=== PATIENT | female | born 1965 | race Caucasian/White ===

== ENCOUNTER → 2016-10-06 | Outpatient (CLI) | payer OTHER ==
[~2016-10-06] MED LIST: ASPI81TA28 PO; ATOR-24 PO; CIPR-255 PO; DIPH50TA10 PO; FLUO40CA8 PO; FOLI1TAB7 PO; GLCSR10 PO; HYDR-5688 PO; INSDGI SC; LEVO88TA3 PO; LISI-789 PO; LNX25 PO; METO50TA7 PO; NTRGSL/4 UT; ONDA4TAB54 PO; OXYC-57 PO; POTA20TA16 PO; RANO1000 PO; SPIR25TA PO; SPRIN/30 INH; TEMA15CA4 PO; TEMA30CA4 PO; TORS100T13 PO
[2016-10-06 18:55] LABS: BASO % 0.2 %; BASO ABS # 0.03 K/uL (0-0.2); COMPLETE YES; EOS % 1.1 %; HEMATOCRIT 36.2 % (37-47); IG% 0.4 %; LYMPH % 21.5 %; LYMPH ABS # 2.82 K/uL (1.2-3.4); MEAN CELL VOLUME 88.5 fL (80-100); MEAN CORPUSCULAR HEMOGLOBIN 27.4 pg (25-34); MEAN CORPUSCULAR HGB CONC 30.9 g/dl (32-36); MEAN PLATELET VOLUME 10.2 fL (7.4-10.4); MONO % 4.6 %; NEUT % 72.2 %; PLATELET COUNT 300 K/uL (130-400); RED BLOOD COUNT 4.09 M/uL (4.2-5.4); WHITE BLOOD COUNT 13.12 K/uL (4.8-10.8)
[2016-10-06 19:07] LABS: BLOOD UREA NITROGEN 21 mg/dl (7-18); BUN/CREATININE RATIO 10.6 (10-20); CALCIUM 8.8 mg/dl (8.5-10.1); CARBON DIOXIDE 31 mmol/L (21-32); CHLORIDE 98 mmol/L (98-107); GLUCOSE 179 mg/dl (70-99); POTASSIUM 3.6 mmol/L (3.5-5.1); SODIUM 139 mmol/L (136-145)
[2016-10-06 19:10] LABS: URINE APPEARANCE CLEAR (CLEAR); URINE BILIRUBIN NEG (NEG); URINE COLOR DK YELLOW; URINE EPITHELIAL CELL AUTO >30 /lpf (0-5); URINE NITRITE NEG (NEG); URINE SPECIFIC GRAVITY 1.012 (1.000-1.030); UROBILINOGEN NEG (NEG)
[2016-10-06 19:12] LABS: MANUAL MICROSCOPIC REQUIRED? NO; REVIEW REQ? NO
== END | disposition home or self-care (01) ==
LOC: C.LABMFLN 12:06
PROVIDERS: ATTEND Family Medicine
DX: R31.9 Hematuria, unspecified (principal)

== ENCOUNTER → 2017-01-04 | Outpatient (CLI) | payer OTHER ==
[2017-01-04 13:32] LABS: URINE APPEARANCE CLEAR (CLEAR); URINE BILIRUBIN NEG (NEG); URINE COLOR YELLOW; URINE EPITHELIAL CELL AUTO >30 /lpf (0-5); URINE NITRITE NEG (NEG); URINE SPECIFIC GRAVITY 1.011 (1.000-1.030); UROBILINOGEN NEG (NEG); ZZUR CULT IF INDIC CLEAN CATCH NO
[2017-01-04 13:57] LABS: MANUAL MICROSCOPIC REQUIRED? NO; REVIEW REQ? NO
[2017-01-04 14:01] LABS: ESTIMATED AVERAGE GLUCOSE 189 mg/dl; HA1C FLAG Normal (Normal)
[2017-01-04 15:03] LABS: ALT/SGPT 21 U/L (12-78); BLOOD UREA NITROGEN 18 mg/dl (7-18); BUN/CREATININE RATIO 9.5 (10-20); CARBON DIOXIDE 34 mmol/L (21-32); CHLORIDE 98 mmol/L (98-107); GLUCOSE 136 mg/dl (70-99); SODIUM 139 mmol/L (136-145)
[2017-01-04 15:08] LABS: CALCIUM 9.6 mg/dl (8.5-10.1)
[2017-01-04 15:13] LABS: ALB/GLOB RATIO 0.9 (0.9-2); ALKALINE PHOSPHATASE 311 U/L (45-117); AST/SGOT 16 U/L (15-37)
== END | disposition home or self-care (01) ==
LOC: C.LABMFLN 08:30
PROVIDERS: ATTEND Family Medicine
DX: I50.30 Unspecified diastolic (congestive) heart failure (principal); E11.9 Type 2 diabetes mellitus without complications; N18.3 Chronic kidney disease, stage 3 (moderate); Z79.01 Long term (current) use of anticoagulants; K80.20 Calculus of gallbladder without cholecystitis without obstruction; I25.10 Atherosclerotic heart disease of native coronary artery without angina pectoris; R11.0 Nausea

== ENCOUNTER 2017-03-03 05:19 | Observation (INO) | payer OTHER ==
[2017-02-23 08:48] VITALS: BMI 47.0
--- NOTE | 2017-02-23 09:26 | PAT Medication Instructions ---
Service Date Feb 23, 2017. Current Home Medication List Aspirin (Aspirin Ec), 81 MG PO QAM Atorvastatin (Lipitor), 40 MG PO HS Digoxin (Digoxin), 0.25 MG PO M,W,F Digoxin (Digoxin), 0.5 TAB PO SUN, TUES, THUR,SAT Diphenhydramine Hcl (Sleep) (Diphenhydramine Hcl), 1 TAB PO HS Fluoxetine (Prozac), 40 MG PO QAM Folic Acid (Folvite), 1 MG PO QAM Glipizide (Glipizide ER), 10 MG PO BID Hydrocodone/Acetaminophen 5MG/325MG ([place] 5MG/325MG), 1 TABLET PO TID PRN for Pain Insulin Glargine (Lantus), 20 UNITS SC QPM Levothyroxine Sodium (Levothyroxine Sodium), 1 TAB PO QAM Lisinopril (Zestril), 2.5 MG PO HS Metoprolol Succ (Toprol Xl) (Toprol-Xl), 50 MG PO QAM Nitroglycerin (Nitrostat), 0.4 MG UT PRN Ondansetron (Ondansetron HCl), 4 MG PO QID PRN for Nausea or Vomiting Potassium Ext Rel (Klor-Con), 20 MEQ PO QAM Ranolazine (Ranexa), 1 TAB PO BID Spironolactone (Aldactone), 25 MG PO QAM Temazepam (Restoril), 15 MG PO HS Temazepam (Restoril), 30 MG PO HS Tiotropium [place] (Spiriva Handihaler), 1 CAP INH DAILY PRN for PRN Torsemide (Demadex), 150 MG PO QAM Medication Instructions For Your Scheduled Surgery - Use if needed: Nitroglycerin (Nitrostat), 0.4 MG UT PRN - Hold the following medications 24 hours prior to surgery: Lisinopril (Zestril), 2.5 MG PO HS - Hold the following medications the morning of surgery: Glipizide (Glipizide ER), 10 MG PO BID Folic Acid (Folvite), 1 MG PO QAM Potassium Ext Rel (Klor-Con), 20 MEQ PO QAM Spironolactone (Aldactone), 25 MG PO QAM Torsemide (Demadex), 150 MG PO QAM - Take the following medications the morning of surgery with a sip of water OTHERWISE NOTHING TO EAT OR DRINK AFTER MIDNIGHT: Aspirin (Aspirin Ec), 81 MG PO QAM Hydrocodone/Acetaminophen 5MG/325MG ([place] 5MG/325MG), 1 TABLET PO TID PRN for Pain (may take if needed up to 4 hours prior to surgery) Ranolazine (Ranexa), 1 TAB PO BID Fluoxetine (Prozac), 40 MG PO QAM Levothyroxine Sodium (Levothyroxine Sodium), 1 TAB PO QAM Digoxin (Digoxin) Metoprolol Succ (Toprol Xl) (Toprol-Xl), 50 MG PO QAM Tiotropium [place] (Spiriva Handihaler), 1 CAP INH DAILY PRN for PRN Ondansetron (Ondansetron HCl), 4 MG PO QID PRN for Nausea or Vomiting - Take the following medications as scheduled the night before surgery: Temazepam (Restoril), 15 MG PO HS Temazepam (Restoril), 30 MG PO HS Insulin Glargine (Lantus), 20 UNITS SC QPM Glipizide (Glipizide ER), 10 MG PO BID Atorvastatin (Lipitor), 40 MG PO HS Hydrocodone/Acetaminophen 5MG/325MG ([place] 5MG/325MG), 1 TABLET PO TID PRN for Pain Ranolazine (Ranexa), 1 TAB PO BID Tiotropium [place] (Spiriva Handihaler), 1 CAP INH DAILY PRN for PRN Ondansetron (Ondansetron HCl), 4 MG PO QID PRN for Nausea or Vomiting Diphenhydramine Hcl (Sleep) (Diphenhydramine Hcl), 1 TAB PO HS If you have any questions please call us at [phone] or [phone] or [phone]
[2017-02-23 10:09] LABS: BASO % 0.4 %; BASO ABS # 0.04 K/uL (0-0.2); COMPLETE YES; EOS % 1.4 %; HEMATOCRIT 39.4 % (37-47); IG% 0.3 %; LYMPH % 22.6 %; LYMPH ABS # 2.15 K/uL (1.2-3.4); MEAN CELL VOLUME 86.4 fL (80-100); MEAN CORPUSCULAR HEMOGLOBIN 26.8 pg (25-34); MEAN PLATELET VOLUME 9.7 fL (7.4-10.4); MONO % 5.7 %; NEUT % 69.6 %; PLATELET COUNT 212 K/uL (130-400); RED BLOOD COUNT 4.56 M/uL (4.2-5.4)
[2017-02-23 11:01] LABS: BUN/CREATININE RATIO 11.3 (10-20); CALCIUM 8.7 mg/dl (8.5-10.1); CREATININE 1.5 mg/dl (0.60-1.20); POTASSIUM 3.7 mmol/L (3.5-5.1)
[2017-03-03] VITALS (11 sets, daily range): BP systolic 94–120; BP diastolic 54–69; PULSE 51–62; TEMP 36.4–36.8; O2SAT 93–99; Ht 162.6 cm; Wt 122.9 kg
[~2017-03-03] VITALS: Ht 162.6 cm; Wt 122.9 kg
[~2017-03-03 05:19] MED LIST changes: -CIPR-255 PO; -OXYC-57 PO
[2017-03-03] MEDS ORDERED: CEFUROXIME IV 1,500 MG in DEXTROSE 5% 100ML IV SCH (06:00)
[2017-03-03] MEDS ORDERED: LACTATED RINGER'S 1000ML 1,000 ML IV SCH ×2 (06:00→08:43)
[2017-03-03] MEDS ORDERED: ACETAMINOPHEN 1000 MG/100 ML IV IV ONE (06:08)
[2017-03-03] MEDS ORDERED: GLYCOPYRROLATE INJ 0.2 MG/ML VIAL ONE (06:24)
[2017-03-03] MEDS ORDERED: DEXAMETHASONE SOD INJ 4 MG/ML VIAL ONE (06:24)
[2017-03-03] MEDS ORDERED: ONDANSETRON INJ 2 MG/ML 2 ML VIAL ONE (06:24)
[2017-03-03] MEDS ORDERED: NEOSTIGMINE METHYLSULFATE 5 MG/5 ML SYR ONE (06:24)
[2017-03-03] MEDS ORDERED: PROPOFOL IV EMULSION 10 MG/ML 20 ML VIAL IV ONE (06:24)
[2017-03-03] MEDS ORDERED: FENTANYL CITRATE INJ 50 MCG/1 ML 2 ML VIAL ONE ×2 (06:24→08:54)
[2017-03-03] MEDS ORDERED: LIDOCAINE HCL 2% 2 ML VIAL (20MG/ML) ONE (06:24)
[2017-03-03] MEDS ORDERED: MIDAZOLAM HCL 1 MG/ML 2ML VIAL ONE (06:24)
[2017-03-03] MEDS ORDERED: ROCURONIUM BROMIDE 10 MG/ML 5 ML VIAL ONE (06:24)
[2017-03-03] MEDS ORDERED: CONRAY 60% 50 ML VIAL ONE (06:35)
[2017-03-03] MEDS ORDERED: BUPIVACAINE 0.5 % 5 MG/1 ML MPF 30ML VIAL ONE (06:35)
[2017-03-03] MEDS ORDERED: KETAMINE HCL INJ 50 MG/ML 10 ML VIAL ONE (07:10)
[2017-03-03] MEDS ORDERED: PHENYLEPHRINE 100MCG/ML 5ML SYR ONE (07:34)
[2017-03-03] MEDS ORDERED: EpHEDrine SULFATE 50MG/5ML SYR ONE (07:34)
--- NOTE | 2017-03-03 08:43 | [facility] Post Operative Brief Note ---
Immediate Operative Summary Operative Date Mar 03, 2017. Pre-Operative Diagnosis Chronic Cholecystitis Post-Operative Diagnosis Chronic Cholecystitis Procedure(s) Performed Laparoscopic Cholecystectomy Surgeon Dr. Walker P[employer] Installation Engineer Surgeon(s) Karen Rodriguez PA-C Estimated Blood Loss 20cc Findings severe hepatic congestion, chronic inflammation, stone in neck, sludge Specimens A: Gallbladder and contents Drains #[id number] MARQUIS Anesthesia gen Complication(s) None Disposition Recovery Room / PACU
[2017-03-03] MEDS ORDERED: ONDANSETRON INJ 2 MG/ML 2 ML VIAL IV PRN ×2 (08:45)
[2017-03-03] MEDS ORDERED: HYDROCODONE/ACETAMOPHEN 5/325MG TAB PO PRN (08:45)
[2017-03-03] MEDS ORDERED: NALOXONE HCL 0.4 MG/1 ML VIAL/CARP IV PRN (08:45)
[2017-03-03] MEDS ORDERED: MoRPHine SULFATE 2 MG/ML CARP IV PRN (08:45)
[2017-03-03] MEDS ORDERED: FENTANYL CITRATE INJ 50 MCG/1 ML 2 ML VIAL IV PRN (08:45)
[2017-03-03] MEDS ORDERED: PROMETHAZINE HCL INJ 25 MG in SODIUM CHLORIDE 0.9% 50ML 50 ML IV PRN ×2 (08:45→10:00)
[2017-03-03] MEDS ORDERED: ATROPINE SULFATE 0.1 MG/ML 5ML SYR IV PRN (08:45)
[2017-03-03] MEDS ORDERED: EpHEDrine SULFATE INJ 50 MG/ML AMP IV PRN (08:45)
[2017-03-03] MEDS ORDERED: PROMETHAZINE HCL INJ 12.5 MG in SODIUM CHLORIDE 0.9% 50ML 50 ML IV PRN ×2 (08:45→10:00)
[2017-03-03] MEDS ORDERED: FLUMAZENIL 0.1 MG/1 ML 10 ML VIAL IV PRN (08:45)
[2017-03-03] MEDS ORDERED: LABETALOL HCL IV 5 MG/ML 20ML IV PRN (08:45)
[2017-03-03] MEDS ORDERED: IV FLUIDS COMPLETED PRN (09:00)
--- NOTE | 2017-03-03 09:06 | OPERATIVE REPORT ---
DATE OF OPERATION: 03/03/2017 NAME OF OPERATION: Laparoscopic cholecystectomy. PREOPERATIVE DIAGNOSIS: Chronic cholecystitis. POSTOPERATIVE DIAGNOSIS: Same with severe chronic liver congestion. STAFF SURGEON: Dr. Walker. TECHNICAL SUPPORT 1 SOFTWARE ENGINEER: Karen Rodriguez PA-C. ANESTHESIA: General. FINDINGS: The patient had a chronically inflamed gallbladder with a stone in the neck of the gallbladder and very severe hepatic congestion. PROCEDURE: The patient was brought in the operating room and placed on the operating table in supine position. Her abdomen was prepped and draped in usual fashion. On physical exam, the patient seemed to have a very large liver. Incision was made just above the umbilicus. She did have a small umbilical hernia. I placed a 5 mm port through this site and produced a pneumoperitoneum. The peritoneum was opened under visualization. At this point, I put a large balloon cannula into this site and then I was able to place two 5 mm ports laterally and then a 11 mm port more inferiorly lower than normal because of the patient's large liver. We were able to identify the gallbladder and retract it with some difficulty because of the liver congestion. It was retracted. It was aspirated of bile. Dissection was carried out at the reese hepatis. She did have a stone in the neck of the gallbladder. The cystic duct and cystic artery were identified, clipped and transected. It did appear that the patient did have some sludge in the gallbladder and within the cystic duct. At this point, the gallbladder was dissected away from the liver. Liver was very friable and fragile secondary to congestion. The gallbladder was placed in an Endobag and then a #15 round Stalin-Allan drain was placed into the subhepatic space, secured to the skin using 3-0 nylon suture. At this point, the gallbladder was removed through the umbilical site. All ports were then removed. The umbilical fascia closed using interrupted 0 PDS suture, subcutaneous tissue reapproximated using 2-0 plain catgut suture and the skin reapproximated using 4-0 nylon suture. The patient was transferred to recovery room in stable condition. I attest to the content of the Intraoperative Record and any orders documented therein. Any exception s are noted below.
--- NOTE | 2017-03-03 09:31 | Anesthesiology Progress Note ---
Anesthesia Post Op Note Date & Time Mar 03, 2017 at 09:31 Vital Signs Pain Intensity: 6 Vital Signs Past 12 Hours Date Time Temp Pulse Resp B/P (MAP) Pulse Ox O2 Delivery O2 Flow Rate FiO2 03/03/17 09:25 58 18 98/49 (65) 96 Nasal Cannula 2 03/03/17 09:15 55 17 95/49 (65) 96 Nasal Cannula 2 03/03/17 09:05 57 18 109/55 97 Mask 10 03/03/17 08:55 58 18 112/50 99 Mask 10 03/03/17 08:48 36.4 65 10 122/54 97 Mask 10 03/03/17 05:40 36.4 54 20 94/69 (77) 93 Room Air Notes Mental Status: alert / awake / arousable, participated in evaluation Pt Amnestic to Procedure: Yes Nausea / Vomiting: adequately controlled Pain: adequately controlled Airway Patency, RR, SpO2: stable & adequate BP & HR: stable & adequate Hydration State: stable & adequate Anesthetic Complications: no major complications apparent
[2017-03-03] MEDS: MoRPHine SULFATE 4 MG/ML 1 ML CARP\\VIAL IV PRN ×2 (10:35→20:56)
[2017-03-03] MEDS ORDERED: NITROGLYCERIN 0.4 MG SL PER TAB CHARGE UT SCH (10:45)
[2017-03-03] MEDS ORDERED: TIOTROPIUM BROMIDE 5 PUFF/90 MCG INH INH PRN (10:45)
[2017-03-03] MEDS: INSULIN ASPART 100 UNITS/ML 3 ML PEN SC SCH ×3 (11:00→20:51)
--- NOTE | 2017-03-03 11:22 | History and Physical ---
History & Physical Date & Time of Service: Mar 03, 2017 at 10:43 Chief Complaint: Gallstones; Diabetes, Chronic Kidney Disease Primary Care Physician: Carlos Guardado M.D. History of Present Illness Source: patient, family 51 y/o F Hx morbid obesity, chronic systolic CHF, AICD, COPD, CKD 3, CAD, RAJINDER. Admitted for elective laparoscopic cholecystectomy. Pt is post-op, c/o of some related pain but is otherwise recovering well. Denies SOB, CP fevers or vomiting. Describes nausea. Past Medical/Surgical History 1) COPD 2) CAD - total 8 MIs and multiple stents 3) CHF - chronic systolic - EF 25% 4) AICD 5) CKD 3 - baseline creat approx 1.5 6) Morbid obesity 7) Continues to smoke 8) RAJINDER - compliant with CPAP 9) Hypothyroidism Family History Adopted - both biologic parents - cause not known Social History Smokes 1/2 pack daily - no ETOH Smoking Status: Current Every Day Smoker Allergies Coded Allergies: Clopidogrel (Verified Allergy, Mild, HIVES, 03/03/17) Home Medications Scheduled Aspirin (Aspirin Ec), 81 MG PO QAM Atorvastatin (Lipitor), 40 MG PO HS Digoxin (Digoxin), 0.25 MG PO M,W,F Digoxin (Digoxin), 0.5 TAB PO SUN, TUES, THUR,SAT Diphenhydramine Hcl (Sleep) (Diphenhydramine Hcl), 1 TAB PO HS Fluoxetine (Prozac), 40 MG PO QAM Folic Acid (Folvite), 1 MG PO QAM Glipizide (Glipizide ER), 10 MG PO BID Insulin Glargine (Lantus), 20 UNITS SC QPM Levothyroxine Sodium (Levothyroxine Sodium), 1 TAB PO QAM Lisinopril (Zestril), 2.5 MG PO HS Metoprolol Succ (Toprol Xl) (Toprol-Xl), 50 MG PO QAM Nitroglycerin (Nitrostat), 0.4 MG UT PRN Potassium Ext Rel (Klor-Con), 20 MEQ PO QAM Ranolazine (Ranexa), 1 TAB PO BID Spironolactone (Aldactone), 25 MG PO QPM Temazepam (Restoril), 15 MG PO HS Temazepam (Restoril), 30 MG PO HS Torsemide (Demadex), 150 MG PO QPM Scheduled PRN Hydrocodone/Acetaminophen 5MG/325MG ([place] 5MG/325MG), 1 TABLET PO TID PRN for Pain Ondansetron (Ondansetron HCl), 4 MG PO QID PRN for Nausea or Vomiting Tiotropium [place] (Spiriva Handihaler), 1 CAP INH DAILY PRN for PRN Review of Systems Constitutional: No fever, No chills, No sweats Eyes: No worsening of vision, No eye pain ENT: No hearing loss, No unusual epistaxis, No nasal symptoms Respiratory: No cough, No sputum, No wheezing Cardiovascular: No chest pain, No orthopnea, No PND Abdomen: + pain, + nausea, No vomiting, No diarrhea Musculoskeletal: No joint pain, No muscle pain Genitourinary - Female: No dysuria, No urinary frequency Neurologic: + weakness, No memory loss, No paralysis Psychiatric: No depression symptoms, No anhedonism Endocrine: + fatigue Hematologic / Lymphatic: No abnormal bleeding/bruising Integumentary: No rash Allergic / Immunologic: No environmental allergies Physical Exam Vital Signs Date Time Temp Pulse Resp B/P (MAP) Pulse Ox O2 Delivery O2 Flow Rate FiO2 03/03/17 10:14 36.4 51 17 94/54 97 Nasal Cannula 2.0 03/03/17 09:45 51 13 96/53 (74) 97 Nasal Cannula 2 03/03/17 09:35 36.0 52 14 101/47 (65) 97 Nasal Cannula 2 03/03/17 09:25 58 18 98/49 (65) 96 Nasal Cannula 2 03/03/17 09:15 55 17 95/49 (65) 96 Nasal Cannula 2 03/03/17 09:05 57 18 109/55 97 Mask 10 03/03/17 08:55 58 18 112/50 99 Mask 10 03/03/17 08:48 36.4 65 10 122/54 97 Mask 10 03/03/17 05:40 36.4 54 20 94/69 (77) 93 Room Air General Appearance: WD/WN, no apparent distress, + pertinent finding (Irritable , middle aged female - uncomfortable but no distress) Head: normocephalic Eyes: normal inspection, PERRL, EOMI ENT: normal ENT inspection, pharynx normal Neck: supple, no JVD Respiratory/Chest: chest non-tender, lungs clear, normal breath sounds Cardiovascular: regular rate, rhythm, no edema, no gallop Abdomen/GI: + tenderness (deep palpation deferred) Back: normal inspection, no CVA tenderness Extremities/Musculoskelatal: normal inspection, no calf tenderness, normal capillary refill, no pedal edema Neurologic/Psych: youtuber II-XII nml as tested, no motor/sensory deficits, alert, normal mood/affect, normal reflexes, oriented x 3 Skin: normal color, warm/dry, no rash Diagnostics Laboratory Results Results Past 24 Hours Test 03/03/17 05:36 03/03/17 09:25 Range/Units Bedside Glucose 108 134 70-90 mg/dl EKG Post-op EKG - Sinus delroy 51 BPM - borderline QT prolongation Impression Assessment and Plan 51 y/o F Hx morbid obesity, chronic systolic CHF, COPD, CKD 3, CAD, RAJINDER. Admitted for elective laparoscopic cholecystectomy. Pt is post-op, c/o of some related pain but is otherwise recovering well. Denies SOB, CP fevers or vomiting. Describes nausea. 1) Post - op - despite complex med history pt appears well compensated and is recovering well. Maintain adequate pain control - start DVT prophylaxis at earliest time as she is moderate to high risk. Should start diet LYNDA if tolerating as she will need her prescribed medications. 2) CHF - she is currently on LR at 50cc/hr - we are pending post-op labs. Would defer her diuretics if possible for tomorrow AM following clinical reassessment and repeat BMP. Currently she is euvolemic. cont Toprol - restart JESICA AM. 3) CAD - repeat EKG shows sinus delroy - no ischemic changes. Cont Toprol, PRN NTG, Ranexa. 4) CKD 3 - creat stable - repeat pending - IVF provided - avoid overdiuresis. 5) COPD - Albuterol provided PRN. Cont Singulair. 6) RAJINDER - CPAP HS 7) DM - placed on SS - Lantus if tolerating PO 8) Hypothyroid - cont Synthroid 9) Surgeon reports impressive hepatomegaly noted during procedure - should f/u with GI - likely congestion and/or LACY - related Med service to follow daily Total time for this consult including review of labs, meds, EKG - discussion with pt and surgery attending - 38 min Above is an inpt consult Advanced Directives Existing Living Will: No Existing Power of Park Guide: No Resuscitation Status FULL RESUSCITATION VTE Prophylaxis VTE Risk Assessment Done? Y/N: Yes Risk Level: Moderate
[2017-03-03] MEDS ORDERED: ALBUTEROL 0.083% NEBU SOLN 3 ML VIAL INH PRN (11:30)
[2017-03-03 11:39] LABS: BUN/CREATININE RATIO 10.3 (10-20); CREATININE 1.6 mg/dl (0.60-1.20); MAGNESIUM 2.3 mg/dl (1.8-2.4); POTASSIUM 3.9 mmol/L (3.5-5.1)
[2017-03-03 11:55] LABS: CALCIUM 8.5 mg/dl (8.5-10.1)
[2017-03-03] MEDS: HYDROCODONE/ACETAMOPHEN 5/325MG TAB PO PRN ×2 (12:06→16:06)
[2017-03-03] MEDS: CEFUROXIME IV 1,500 MG in DEXTROSE 5% 100ML 100 ML IV SCH ×2 (13:19→21:02)
[2017-03-03] MEDS ORDERED: DIGOXIN 0.25 MG TAB PO SCH (16:00)
[2017-03-03] MEDS: ATORVASTATIN 40 MG TAB PO SCH (20:43)
[2017-03-03] MEDS: RANOLAZINE 500 MG ER TAB PO SCH (20:43)
[2017-03-03] MEDS: TEMAZEPAM 15 MG CAP PO SCH (20:44)
[2017-03-03] MEDS: INSULIN GLARGINE SOLOSTAR 100 UNITS/ML 3 ML PEN SC SCH (20:51)
[2017-03-03] MEDS ORDERED: TEMAZEPAM 15 MG CAP PO SCH (21:00)
[2017-03-04] VITALS (9 sets, daily range): BP systolic 99–114; BP diastolic 50–70; PULSE 53–64; TEMP 36.5–36.9; O2SAT 92–97
[2017-03-04] MEDS: MoRPHine SULFATE 4 MG/ML 1 ML CARP\\VIAL IV PRN ×2 (01:48→22:12)
[2017-03-04] MEDS: LEVOTHYROXINE 88 MCG TAB PO SCH (05:21)
[2017-03-04] MEDS: HYDROCODONE/ACETAMOPHEN 5/325MG TAB PO PRN ×3 (05:22→15:21)
[2017-03-04] MEDS: CEFUROXIME IV 1,500 MG in DEXTROSE 5% 100ML 100 ML IV SCH (05:22)
[2017-03-04 05:36] LABS: HEMATOCRIT 39.4 % (37-47); MEAN CELL VOLUME 85.5 fL (80-100); MEAN CORPUSCULAR HEMOGLOBIN 26.2 pg (25-34); MEAN CORPUSCULAR HGB CONC 30.7 g/dl (32-36); MEAN PLATELET VOLUME 10.4 fL (7.4-10.4); PLATELET COUNT 219 K/uL (130-400); RED BLOOD COUNT 4.61 M/uL (4.2-5.4); WHITE BLOOD COUNT 13.43 K/uL (4.8-10.8)
[2017-03-04 06:09] LABS: BUN/CREATININE RATIO 13.1 (10-20); CALCIUM 8.5 mg/dl (8.5-10.1); CREATININE 1.5 mg/dl (0.60-1.20); POTASSIUM 4.2 mmol/L (3.5-5.1)
[2017-03-04 06:12] LABS: ALB/GLOB RATIO 0.9 (0.9-2)
--- NOTE | 2017-03-04 06:54 | Surgery Progress Note ---
Surgery Progress Note Date of Service Mar 04, 2017. Subjective + pain controlled, No nausea, No vomiting awake, alert, serous/clear drainage-expected Objective Vital Signs: Date Time Temp Pulse Resp B/P (MAP) Pulse Ox O2 Delivery O2 Flow Rate FiO2 03/04/17 04:00 Room Air 2.0 CPAP 03/04/17 03:47 36.5 64 22 114/50 (71) 95 CPAP 03/04/17 00:00 Room Air 2.0 CPAP 03/03/17 23:46 36.5 57 20 115/57 (76) 93 CPAP 03/03/17 20:04 54 97 2.0 03/03/17 20:00 Room Air 2.0 CPAP 03/03/17 19:12 36.5 62 17 120/65 (83) 93 Room Air 03/03/17 16:05 55 03/03/17 16:00 Room Air 03/03/17 15:26 36.6 55 20 105/66 (79) 97 Room Air 03/03/17 13:00 36.7 55 22 107/61 (76) 99 Nasal Cannula 2.0 03/03/17 12:00 36.8 54 20 106/64 (78) 99 03/03/17 12:00 Nasal Cannula 2.0 03/03/17 11:41 36.8 54 20 106/64 (78) 99 Nasal Cannula 2.0 03/03/17 11:00 36.4 52 17 101/58 (72) 96 03/03/17 10:30 36.4 51 17 94/54 (67) 96 03/03/17 10:14 36.4 51 17 94/54 97 Nasal Cannula 2.0 03/03/17 09:45 51 13 96/53 (74) 97 Nasal Cannula 2 03/03/17 09:35 36.0 52 14 101/47 (65) 97 Nasal Cannula 2 03/03/17 09:25 58 18 98/49 (65) 96 Nasal Cannula 2 03/03/17 09:15 55 17 95/49 (65) 96 Nasal Cannula 2 03/03/17 09:05 57 18 109/55 97 Mask 10 03/03/17 08:55 58 18 112/50 99 Mask 10 03/03/17 08:48 36.4 65 10 122/54 97 Mask 10 General Appearance: no apparent distress Respiratory/Chest: no respiratory distress Abdomen: soft Incision(s): intact Laboratory Results: Results Past 24 Hours Test 03/03/17 09:25 03/03/17 10:53 03/03/17 11:22 03/03/17 16:22 Range/Units Bedside Glucose 134 140 196 70-90 mg/dl Sodium Level 138 136-145 mmol/L Potassium Level 3.9 3.5-5.1 mmol/L Chloride Level 99 98-107 mmol/L Carbon Dioxide Level 30 21-32 mmol/L Anion Gap 9.0 3-11 mmol/L Blood Urea Nitrogen 17 7-18 mg/dl Creatinine 1.60 0.60-1.20 mg/dl Est Creatinine Clear Calc Drug Dose 54.0 ml/min Estimated GFR () 42.8 Estimated GFR (Non- 36.9 BUN/Creatinine Ratio 10.3 10-20 Random Glucose 139 70-99 mg/dl Calcium Level 8.5 8.5-10.1 mg/dl Magnesium Level 2.3 1.8-2.4 mg/dl Test 03/03/17 20:03 03/04/17 05:05 03/04/17 06:21 Range/Units Bedside Glucose 240 161 70-90 mg/dl White Blood Count 13.43 4.8-10.8 K/uL Red Blood Count 4.61 4.2-5.4 M/uL Hemoglobin 12.1 12.0-16.0 g/dL Hematocrit 39.4 37-47 % Mean Corpuscular Volume 85.5 80-100 fL Mean Corpuscular Hemoglobin 26.2 25-34 pg Mean Corpuscular Hemoglobin Concent 30.7 32-36 g/dl RDW Standard Deviation 50.8 36.4-46.3 fL RDW Coefficient of Variation 16.0 11.5-14.5 % Platelet Count 219 130-400 K/uL Mean Platelet Volume 10.4 7.4-10.4 fL Sodium Level 136 136-145 mmol/L Potassium Level 4.2 3.5-5.1 mmol/L Chloride Level 98 98-107 mmol/L Carbon Dioxide Level 33 21-32 mmol/L Anion Gap 5.0 3-11 mmol/L Blood Urea Nitrogen 20 7-18 mg/dl Creatinine 1.50 0.60-1.20 mg/dl Est Creatinine Clear Calc Drug Dose 57.4 ml/min Estimated GFR () 46.3 Estimated GFR (Non- 39.9 BUN/Creatinine Ratio 13.1 10-20 Random Glucose 138 70-99 mg/dl Calcium Level 8.5 8.5-10.1 mg/dl Total Bilirubin 0.8 0.2-1 mg/dl Direct Bilirubin 0.4 0-0.2 mg/dl Aspartate Amino Transf (AST/SGOT) 22 15-37 U/L Alanine Aminotransferase (ALT/SGPT) 30 12-78 U/L Alkaline Phosphatase 246 45-117 U/L Total Protein 6.4 6.4-8.2 gm/dl Albumin 3.0 3.4-5.0 gm/dl Globulin 3.4 2.5-4.0 gm/dl Albumin/Globulin Ratio 0.9 0.9-2 Assessment & Plan 03/04/17- s/p lap sachi- difficult secondary to significant hepatic congestion drain in place- expected serous drainage pt w/o acute chgs- to regular floor- possible d/c tomorrow needs to ambulate
[2017-03-04] MEDS ORDERED: HYDR-5688 PO (06:56)
--- NOTE | 2017-03-04 06:59 | Discharge Instructions ---
Discharge Instructions Date of Service Mar 04, 2017. Admission Reason for Admission: Gallstones; Diabetes, Chronic Kidney Disease Discharge Discharge Diagnosis / Problem: chronic cholecystitis, hepatic congestion Discharge Goals Goal(s): Decrease discomfort, Improve function, Improve disease control Activity Recommendations Activity Limitations: as noted below Lifting Limitations: no more than 10 pounds Exercise/Sports Limitations: until after follow-up appointment May Resume Sexual Activity: after follow-up appointment Shower/Bathe: tomorrow SPECIAL CARE INSTRUCTIONS: * Cover incisions and change daily for comfort/drainage. * Empty drain 2-3 times per day and record. * May use ibuprofen for pain as tolerated. * Expect some swelling and bruising. Call your doctor if: * Temperature above 101 degrees * Pain not relieved by pain medicine ordered * There is increased drainage or redness from any incision * You have any unanswered questions or concerns [phone]. FOLLOW UP VISIT: If not already scheduled, please call the office for a follow-up visit. for next Wed/Wed- drain removal, wound check- please call office OFFICE PHONE NUMBER: Dr. Walker Office . Current Hospital Diet Patient's current hospital diet: Diabetes Type 2 Diet Discharge Diet Recommended Diet: Regular Diet Procedures Procedures Performed: Laparoscopic Cholecystectomy Pending Studies Studies pending at discharge: no Laboratory Results Hemoglobin A1c Test 01/04/17 09:59 Range/Units Estimated Average Glucose 189 mg/dl Hemoglobin A1c 8.2 H 4.5-5.6 % Medical Emergencies . Who to Call and When: Medical Emergencies: If at any time you feel your situation is an emergency, please call 911 immediately. . Non-Emergent Contact Non-Emergency issues call your: Primary Care Provider, Surgeon . "Provider Documentation" section prepared by Keshav Walker. . VTE Core Measure Inpt VTE Proph given/why not?: Unfractionated heparin SQ, SCD's
[2017-03-04] MEDS: FLUOXETINE HCL 20 MG CAP PO SCH (07:39)
[2017-03-04] MEDS: ASPIRIN 81 MG ECTAB PO SCH (07:39)
--- NOTE | 2017-03-04 07:39 | Anesthesiology Progress Note ---
Anesthesia Post Op Note Date & Time Mar 04, 2017 at 07:38 Vital Signs Vital Signs Past 12 Hours Date Time Temp Pulse Resp B/P (MAP) Pulse Ox O2 Delivery O2 Flow Rate FiO2 03/04/17 04:00 Room Air 2.0 CPAP 03/04/17 03:47 36.5 64 22 114/50 (71) 95 CPAP 03/04/17 00:00 Room Air 2.0 CPAP 03/03/17 23:46 36.5 57 20 115/57 (76) 93 CPAP 03/03/17 20:04 54 97 2.0 03/03/17 20:00 Room Air 2.0 CPAP Notes Mental Status: alert / awake / arousable, participated in evaluation Pt Amnestic to Procedure: Yes Nausea / Vomiting: adequately controlled Pain: adequately controlled Airway Patency, RR, SpO2: stable & adequate BP & HR: stable & adequate Hydration State: stable & adequate Anesthetic Complications: no major complications apparent
[2017-03-04] MEDS: DOCUSATE SODIUM/SENNA 50/8.6MG TAB PO SCH ×2 (07:40→21:58)
[2017-03-04] MEDS: RANOLAZINE 500 MG ER TAB PO SCH ×2 (07:40→21:58)
[2017-03-04] MEDS: METOPROLOL SUCC 50MG EXT REL TAB PO SCH ×2 (07:41→11:14)
[2017-03-04] MEDS: INSULIN ASPART 100 UNITS/ML 3 ML PEN SC SCH ×4 (07:55→22:05)
[2017-03-04 09:49] LABS: INR 1.1 (0.9-1.1); PROTHROMBIN TIME (PATIENT) 11.6 SECONDS (9.0-12.0)
[2017-03-04] MEDS ORDERED: GLUCOSE 10 TABS/TUBE PO PRN (10:00)
[2017-03-04] MEDS ORDERED: GLUCOSE 40% GEL 15 GM TUBE PO PRN (10:00)
[2017-03-04] MEDS ORDERED: DEXTROSE 50% 50 ML SYR IV PRN (10:00)
[2017-03-04] MEDS ORDERED: GLUCAGON FOR INJ 1 MG VIAL SQ PRN (10:00)
--- NOTE | 2017-03-04 10:26 | Medical Student: [facility] ---
Med Student Progress Note Date of Service Mar 04, 2017. Subjective 51 y/o with pmh of CHF, AICD, HTN, CKD 3, COPD , RAJINDER, DM who is s/p laparascopic cholecystecomy post op day 1. Feeling well but has generalized pain. Has been tolerating a normal diet. Her drain has been draining steadily. Wound sites are clean with new gauze. Review of Systems Constitutional: No fever, No chills Respiratory: No cough, No sputum Cardiac: No chest pain Abdomen: + pain, No nausea, No vomiting, No diarrhea, No constipation Heme: No abnormal bleeding/bruising Objective Vital Signs Date Time Temp Pulse Resp B/P (MAP) Pulse Ox O2 Delivery O2 Flow Rate FiO2 03/04/17 08:33 36.5 58 18 108/70 (83) 97 Room Air 03/04/17 08:09 36.5 55 14 93 03/04/17 07:46 36.5 55 14 107/53 (71) 93 Room Air 03/04/17 07:45 Room Air CPAP 03/04/17 04:00 Room Air 2.0 CPAP 03/04/17 03:47 36.5 64 22 114/50 (71) 95 CPAP 03/04/17 00:00 Room Air 2.0 CPAP 03/03/17 23:46 36.5 57 20 115/57 (76) 93 CPAP 03/03/17 20:04 54 97 2.0 03/03/17 20:00 Room Air 2.0 CPAP 03/03/17 19:12 36.5 62 17 120/65 (83) 93 Room Air 03/03/17 16:05 55 03/03/17 16:00 Room Air 03/03/17 15:26 36.6 55 20 105/66 (79) 97 Room Air 03/03/17 13:00 36.7 55 22 107/61 (76) 99 Nasal Cannula 2.0 03/03/17 12:00 36.8 54 20 106/64 (78) 99 03/03/17 12:00 Nasal Cannula 2.0 03/03/17 11:41 36.8 54 20 106/64 (78) 99 Nasal Cannula 2.0 03/03/17 11:00 36.4 52 17 101/58 (72) 96 03/03/17 10:30 36.4 51 17 94/54 (67) 96 Physical Exam General Appearance: WD/WN, no apparent distress ENT: pharynx normal Neck: supple, no adenopathy, thyroid normal Respiratory/Chest: chest non-tender, + decreased breath sounds Cardiovascular: regular rate, rhythm Abdomen: normal bowel sounds, non tender, soft Extremities: + pedal edema (1+ bilaterallly ) Neurologic/Psychiatric: alert, normal mood/affect, oriented x 3 Skin: normal color, no rash Laboratory Results Last 24 Hours Test 03/03/17 10:53 03/03/17 11:22 03/03/17 16:22 03/03/17 20:03 Sodium Level 138 mmol/L Potassium Level 3.9 mmol/L Chloride Level 99 mmol/L Carbon Dioxide Level 30 mmol/L Anion Gap 9.0 mmol/L Blood Urea Nitrogen 17 mg/dl Creatinine 1.60 mg/dl Est Creatinine Clear Calc Drug Dose 54.0 ml/min Estimated GFR () 42.8 Estimated GFR (Non- 36.9 BUN/Creatinine Ratio 10.3 Random Glucose 139 mg/dl Calcium Level 8.5 mg/dl Magnesium Level 2.3 mg/dl Bedside Glucose 140 mg/dl 196 mg/dl 240 mg/dl Test 03/04/17 05:05 03/04/17 06:21 03/04/17 09:25 White Blood Count 13.43 K/uL Red Blood Count 4.61 M/uL Hemoglobin 12.1 g/dL Hematocrit 39.4 % Mean Corpuscular Volume 85.5 fL Mean Corpuscular Hemoglobin 26.2 pg Mean Corpuscular Hemoglobin Concent 30.7 g/dl RDW Standard Deviation 50.8 fL RDW Coefficient of Variation 16.0 % Platelet Count 219 K/uL Mean Platelet Volume 10.4 fL Sodium Level 136 mmol/L Potassium Level 4.2 mmol/L Chloride Level 98 mmol/L Carbon Dioxide Level 33 mmol/L Anion Gap 5.0 mmol/L Blood Urea Nitrogen 20 mg/dl Creatinine 1.50 mg/dl Est Creatinine Clear Calc Drug Dose 57.4 ml/min Estimated GFR () 46.3 Estimated GFR (Non- 39.9 BUN/Creatinine Ratio 13.1 Random Glucose 138 mg/dl Calcium Level 8.5 mg/dl Total Bilirubin 0.8 mg/dl Direct Bilirubin 0.4 mg/dl Aspartate Amino Transf (AST/SGOT) 22 U/L Alanine Aminotransferase (ALT/SGPT) 30 U/L Alkaline Phosphatase 246 U/L Total Protein 6.4 gm/dl Albumin 3.0 gm/dl Globulin 3.4 gm/dl Albumin/Globulin Ratio 0.9 Bedside Glucose 161 mg/dl Prothrombin Time 11.6 SECONDS Prothromb Time International Ratio 1.1 Medications Medications Administered Medications (Trade) Dose Ordered Sig/Penelope Route Start Time Stop Time Status Last Admin Dose Admin Cefuroxime Sodium 1500 mg/Dextrose 115 ml @ 230 mls/hr PREOP IV 03/03/17 06:00 03/03/17 13:59 DC 03/03/17 07:01 230 MLS/HR Bupivacaine HCl (Marcaine 0.5% MPF Inj) 30 ml STK-MED ONCE .ROUTE 03/03/17 06:35 03/03/17 06:36 DC 03/03/17 06:35 5 ML Ondansetron HCl (Zofran Inj) 4 mg ONE PRN IV 03/03/17 08:45 03/04/17 01:50 DC 03/04/17 01:50 4 MG Lactated Ringer's 1,000 ml @ 50 mls/hr Q20H IV 03/03/17 08:43 03/04/17 05:52 DC 03/03/17 10:35 50 MLS/HR Cefuroxime Sodium 1500 mg/Dextrose 115 ml @ 200 mls/hr Q8 IV 03/03/17 14:00 03/04/17 13:59 03/04/17 05:22 200 MLS/HR Acetaminophen/ Hydrocodone Bitart ([place] 5/325 Tab) 2 tab Q4 PRN PO 03/03/17 08:45 03/17/17 08:44 03/04/17 05:22 2 TAB Morphine Sulfate (MoRPHine SULFATE INJ) 4 mg Q4H PRN IV 03/03/17 08:45 03/17/17 08:44 03/04/17 01:48 4 MG Fentanyl Citrate (Fentanyl Inj) 100 mcg STK-MED ONCE .ROUTE 03/03/17 08:54 03/03/17 08:55 DC 03/03/17 09:17 25 MCG Aspirin (Ecotrin Tab) 81 mg QAM PO 03/04/17 09:00 04/03/17 08:59 03/04/17 07:39 81 MG Atorvastatin Calcium (Lipitor Tab) 40 mg HS PO 03/03/17 21:00 04/02/17 20:59 03/03/17 20:43 40 MG Digoxin (Lanoxin Tab) 0.25 mg MoWeFr@1600 PO 03/03/17 16:00 04/02/17 15:59 03/03/17 16:05 0.25 MG Fluoxetine HCl (Prozac Cap) 40 mg QAM PO 03/04/17 09:00 04/03/17 08:59 03/04/17 07:39 40 MG Folic Acid (Folvite Tab) 1 mg QAM PO 03/04/17 09:00 04/03/17 08:59 03/04/17 07:39 1 MG Insulin Glargine (Lantus Solostar Pen) 20 unit QPM SC 03/03/17 21:00 04/02/17 20:59 03/03/17 20:51 20 UNIT Levothyroxine Sodium (Synthroid Tab) 88 mcg DAILYBB PO 03/04/17 06:00 04/03/17 05:59 03/04/17 05:21 88 MCG Temazepam (Restoril Cap) 45 mg HS PO 03/03/17 21:00 04/02/17 20:59 03/03/17 20:44 45 MG Ranolazine (Ranexa ER Tab) 1,000 mg BID PO 03/03/17 21:00 04/02/17 20:59 03/04/17 07:40 1,000 MG Insulin Aspart (novoLOG ASPART) SLIDING SCALE G... ACHS SC 03/03/17 11:00 04/02/17 10:59 03/04/17 07:55 1 UNITS Senna/Docusate Sodium (Senokot S Tab) 1 tab BID PO 03/04/17 09:00 04/03/17 08:59 03/04/17 07:40 1 TAB Assessment and Plan Assessment and Plan: 51 y/o with multiple comorbid problems who is post op day 1 from laparascopic cholecystectomy. Recovering well overall. 1. Post-Op -Continue monitoring drainage -Heparin 5000 subq for DVT prophylaxis has been started 2. CHF -Continue to hold lasix as BP has continued to be low -Continue digoxin -Hold JESICA, as BP is still low. 3. CAD w/ hx of [place] -Continue Toprol -Nitroglycerin prn -Ranexa 4. CKD 3 -Creatinine stable 5) COPD -Albuterol provided PRN. 6) RAJINDER -CPAP 7) DM - Lantus 20 units qpm 8) Hypothyroid -Synthroid 88mcg 9) LACY -impressive hepatomegaly in procedure -recommend follow up with GI Discharge planning: home
[2017-03-04] MEDS: HEPARIN SOD 5000 UNIT/0.5 ML CARP SQ SCH ×2 (12:33→22:07)
--- NOTE | 2017-03-04 15:40 | Progress Note ---
Subjective Date of Service: Mar 04, 2017. Subjective this pt has no complaints except for feeling slightly sluggish and being slightly flushed, she has good pain control and no shortness of breath. Review of Systems Constitutional: + weakness, + fatigue, No fever, No chills Cardiac: No chest pain, No edema Abdomen: + pain, No nausea, No vomiting, No diarrhea Musculoskeletal: No joint pain, No muscle pain, No swelling Female : No dysuria, No urinary frequency Objective Vital Signs Date Time Temp Pulse Resp B/P (MAP) Pulse Ox O2 Delivery O2 Flow Rate FiO2 03/04/17 07:46 36.5 55 14 107/53 (71) 93 Room Air 03/04/17 04:00 Room Air 2.0 CPAP 03/04/17 03:47 36.5 64 22 114/50 (71) 95 CPAP 03/04/17 00:00 Room Air 2.0 CPAP 03/03/17 23:46 36.5 57 20 115/57 (76) 93 CPAP 03/03/17 20:04 54 97 2.0 03/03/17 20:00 Room Air 2.0 CPAP 03/03/17 19:12 36.5 62 17 120/65 (83) 93 Room Air 03/03/17 16:05 55 03/03/17 16:00 Room Air 03/03/17 15:26 36.6 55 20 105/66 (79) 97 Room Air 03/03/17 13:00 36.7 55 22 107/61 (76) 99 Nasal Cannula 2.0 03/03/17 12:00 36.8 54 20 106/64 (78) 99 03/03/17 12:00 Nasal Cannula 2.0 03/03/17 11:41 36.8 54 20 106/64 (78) 99 Nasal Cannula 2.0 03/03/17 11:00 36.4 52 17 101/58 (72) 96 03/03/17 10:30 36.4 51 17 94/54 (67) 96 03/03/17 10:14 36.4 51 17 94/54 97 Nasal Cannula 2.0 03/03/17 09:45 51 13 96/53 (74) 97 Nasal Cannula 2 03/03/17 09:35 36.0 52 14 101/47 (65) 97 Nasal Cannula 2 03/03/17 09:25 58 18 98/49 (65) 96 Nasal Cannula 2 03/03/17 09:15 55 17 95/49 (65) 96 Nasal Cannula 2 03/03/17 09:05 57 18 109/55 97 Mask 10 03/03/17 08:55 58 18 112/50 99 Mask 10 03/03/17 08:48 36.4 65 10 122/54 97 Mask 10 Physical Exam General Appearance: WD/WN, + mild distress Neck: supple, no JVD Respiratory/Chest: chest non-tender, lungs clear, normal breath sounds Cardiovascular: regular rate, rhythm, no murmur Abdomen: normal bowel sounds, non tender, soft Extremities: no pedal edema, no calf tenderness Neurologic/Psychiatric: alert, oriented x 3 Laboratory Results Last 24 Hours Test 03/03/17 09:25 03/03/17 10:53 03/03/17 11:22 03/03/17 16:22 Bedside Glucose 134 mg/dl 140 mg/dl 196 mg/dl Sodium Level 138 mmol/L Potassium Level 3.9 mmol/L Chloride Level 99 mmol/L Carbon Dioxide Level 30 mmol/L Anion Gap 9.0 mmol/L Blood Urea Nitrogen 17 mg/dl Creatinine 1.60 mg/dl Est Creatinine Clear Calc Drug Dose 54.0 ml/min Estimated GFR () 42.8 Estimated GFR (Non- 36.9 BUN/Creatinine Ratio 10.3 Random Glucose 139 mg/dl Calcium Level 8.5 mg/dl Magnesium Level 2.3 mg/dl Test 03/03/17 20:03 03/04/17 05:05 03/04/17 06:21 03/04/17 07:56 Bedside Glucose 240 mg/dl 161 mg/dl White Blood Count 13.43 K/uL Red Blood Count 4.61 M/uL Hemoglobin 12.1 g/dL Hematocrit 39.4 % Mean Corpuscular Volume 85.5 fL Mean Corpuscular Hemoglobin 26.2 pg Mean Corpuscular Hemoglobin Concent 30.7 g/dl RDW Standard Deviation 50.8 fL RDW Coefficient of Variation 16.0 % Platelet Count 219 K/uL Mean Platelet Volume 10.4 fL Sodium Level 136 mmol/L Potassium Level 4.2 mmol/L Chloride Level 98 mmol/L Carbon Dioxide Level 33 mmol/L Anion Gap 5.0 mmol/L Blood Urea Nitrogen 20 mg/dl Creatinine 1.50 mg/dl Est Creatinine Clear Calc Drug Dose 57.4 ml/min Estimated GFR () 46.3 Estimated GFR (Non- 39.9 BUN/Creatinine Ratio 13.1 Random Glucose 138 mg/dl Calcium Level 8.5 mg/dl Total Bilirubin 0.8 mg/dl Direct Bilirubin 0.4 mg/dl Aspartate Amino Transf (AST/SGOT) 22 U/L Alanine Aminotransferase (ALT/SGPT) 30 U/L Alkaline Phosphatase 246 U/L Total Protein 6.4 gm/dl Albumin 3.0 gm/dl Globulin 3.4 gm/dl Albumin/Globulin Ratio 0.9 Assessment and Plan 51 y/o F Hx morbid obesity, chronic systolic CHF, COPD, CKD 3, CAD, RAJINDER. Admitted for elective laparoscopic cholecystectomy. Pt is post-op, c/o of some related pain but is otherwise recovering well. Denies SOB, CP fevers or vomiting. Describes nausea. Chronic systolic heart failure EF 25% remains euvolemic. cont Toprol - restart JESICA CAD - previous HI's PRN NTG, Ranexa. CKD3 remains stable cautious restart of acei COPD - no current symptoms Albuterol provided PRN. Cont Singulair. RAJINDER - CPAP HS DM - placed on SS - Lantus if tolerating PO Hypothyroid - cont Synthroid
[2017-03-04] MEDS ORDERED: DIGOXIN 0.125 MG TAB PO SCH (16:00)
[2017-03-04] MEDS ORDERED: LISINOPRIL 2.5 MG TAB PO SCH (21:00)
[2017-03-04] MEDS: ATORVASTATIN 40 MG TAB PO SCH (21:57)
[2017-03-04] MEDS: TEMAZEPAM 15 MG CAP PO SCH (21:58)
[2017-03-04] MEDS: INSULIN GLARGINE SOLOSTAR 100 UNITS/ML 3 ML PEN SC SCH (22:06)
[2017-03-05] MEDS ORDERED: CIPR-255 PO (06:05)
[2017-03-05] MEDS: LEVOTHYROXINE 88 MCG TAB PO SCH (06:08)
[2017-03-05] MEDS: HYDROCODONE/ACETAMOPHEN 5/325MG TAB PO PRN (06:09)
[2017-03-05 07:08] VITALS: BP 96/63; PULSE 50; TEMP 36.5; O2SAT 93
[2017-03-05] MEDS: INSULIN ASPART 100 UNITS/ML 3 ML PEN SC SCH (08:55)
[2017-03-05] MEDS: RANOLAZINE 500 MG ER TAB PO SCH (08:56)
[2017-03-05] MEDS: ASPIRIN 81 MG ECTAB PO SCH (08:56)
[2017-03-05] MEDS: DOCUSATE SODIUM/SENNA 50/8.6MG TAB PO SCH (08:57)
[2017-03-05] MEDS: FLUOXETINE HCL 20 MG CAP PO SCH (08:57)
[2017-03-05] MEDS: METOPROLOL SUCC 50MG EXT REL TAB PO SCH (08:59)
[2017-03-05] MEDS ORDERED: CIPROFLOXACIN 500 MG TAB PO SCH (09:00)
[2017-03-05] MEDS: HEPARIN SOD 5000 UNIT/0.5 ML CARP SQ SCH (09:02)
--- NOTE | 2017-03-05 09:53 | Medical Student: [facility] ---
Med Student Progress Note Date of Service Mar 05, 2017. Subjective Pt evaluation today including: conversation w/ patient, physical exam Patient is doing well overall, complains of general pain but that it is manageable. She has been ambulating halls, eating, drinking without problem. She has not passed gas or had a bowel movement, but says this is normal for her. Dressings are clean on wound, and drain is draining well. Review of Systems Constitutional: No fever, No chills Respiratory: + cough, No wheezing, No shortness of breath, No dyspnea on exertion Cardiac: No chest pain, No orthopnea Abdomen: + pain, + constipation, No nausea, No vomiting, No diarrhea Female : No dysuria Skin: No rash Objective Vital Signs Date Time Temp Pulse Resp B/P (MAP) Pulse Ox O2 Delivery O2 Flow Rate FiO2 03/05/17 07:08 36.5 50 16 96/63 (74) 93 Room Air 03/04/17 23:16 64 97 2.0 03/04/17 23:07 36.9 53 20 99/65 (76) 96 CPAP 03/04/17 20:10 64 18 94 Room Air 03/04/17 19:45 Room Air 03/04/17 15:55 Room Air 03/04/17 15:21 62 03/04/17 15:00 36.5 56 18 106/66 (79) 93 Room Air 03/04/17 10:39 36.6 56 17 107/70 (82) 92 Room Air Physical Exam General Appearance: WD/WN, no apparent distress ENT: pharynx normal Neck: supple, no adenopathy, thyroid normal, no JVD Respiratory/Chest: chest non-tender, + decreased breath sounds, + wheezing ( diffusely b/l ) Cardiovascular: regular rate, rhythm, no JVD Abdomen: normal bowel sounds, non tender, soft Extremities: + pedal edema (1+ b/l) Neurologic/Psychiatric: alert, normal mood/affect, oriented x 3 Skin: normal color, warm/dry Laboratory Results Last 24 Hours Test 03/04/17 12:00 03/04/17 17:26 03/04/17 21:07 03/05/17 07:53 Bedside Glucose 218 mg/dl 198 mg/dl 207 mg/dl 113 mg/dl Medications Medications Administered Medications (Trade) Dose Ordered Sig/Penelope Route Start Time Stop Time Status Last Admin Dose Admin Cefuroxime Sodium 1500 mg/Dextrose 115 ml @ 230 mls/hr PREOP IV 03/03/17 06:00 03/03/17 13:59 DC 03/03/17 07:01 230 MLS/HR Bupivacaine HCl (Marcaine 0.5% MPF Inj) 30 ml STK-MED ONCE .ROUTE 03/03/17 06:35 03/03/17 06:36 DC 03/03/17 06:35 5 ML Ondansetron HCl (Zofran Inj) 4 mg ONE PRN IV 03/03/17 08:45 03/04/17 01:50 DC 03/04/17 01:50 4 MG Lactated Ringer's 1,000 ml @ 50 mls/hr Q20H IV 03/03/17 08:43 03/04/17 05:52 DC 03/03/17 10:35 50 MLS/HR Cefuroxime Sodium 1500 mg/Dextrose 115 ml @ 200 mls/hr Q8 IV 03/03/17 14:00 03/04/17 13:59 DC 03/04/17 05:22 200 MLS/HR Acetaminophen/ Hydrocodone Bitart ([place] 5/325 Tab) 2 tab Q4 PRN PO 03/03/17 08:45 03/17/17 08:44 03/05/17 06:09 2 TAB Morphine Sulfate (MoRPHine SULFATE INJ) 4 mg Q4H PRN IV 03/03/17 08:45 03/17/17 08:44 03/04/17 22:12 4 MG Fentanyl Citrate (Fentanyl Inj) 100 mcg STK-MED ONCE .ROUTE 03/03/17 08:54 03/03/17 08:55 DC 03/03/17 09:17 25 MCG Aspirin (Ecotrin Tab) 81 mg QAM PO 03/04/17 09:00 04/03/17 08:59 03/05/17 08:56 81 MG Atorvastatin Calcium (Lipitor Tab) 40 mg HS PO 03/03/17 21:00 04/02/17 20:59 03/04/17 21:57 40 MG Digoxin (Lanoxin Tab) 0.25 mg MoWeFr@1600 PO 03/03/17 16:00 04/02/17 15:59 03/03/17 16:05 0.25 MG Digoxin (Lanoxin Tab) 0.125 mg SuTuThSa@1600 PO 03/04/17 16:00 04/03/17 15:59 03/04/17 15:21 0.125 MG Fluoxetine HCl (Prozac Cap) 40 mg QAM PO 03/04/17 09:00 04/03/17 08:59 03/05/17 08:57 40 MG Folic Acid (Folvite Tab) 1 mg QAM PO 03/04/17 09:00 04/03/17 08:59 03/05/17 08:56 1 MG Insulin Glargine (Lantus Solostar Pen) 20 unit QPM SC 03/03/17 21:00 04/02/17 20:59 03/04/17 22:06 20 UNIT Levothyroxine Sodium (Synthroid Tab) 88 mcg DAILYBB PO 03/04/17 06:00 04/03/17 05:59 03/05/17 06:08 88 MCG Metoprolol Succinate (Toprol Xl Tab) 50 mg QAM PO 03/04/17 09:00 04/03/17 08:59 03/04/17 11:14 50 MG Temazepam (Restoril Cap) 45 mg HS PO 03/03/17 21:00 04/02/17 20:59 03/04/17 21:58 45 MG Ranolazine (Ranexa ER Tab) 1,000 mg BID PO 03/03/17 21:00 04/02/17 20:59 03/05/17 08:56 1,000 MG Insulin Aspart (novoLOG ASPART) SLIDING SCALE G... ACHS SC 03/03/17 11:00 04/02/17 10:59 03/04/17 22:05 2 UNITS Albuterol Sulfate (Ventolin 0.083% 2.5MG/3ML Neb) 2.5 mg Q6R PRN INH 03/03/17 11:30 04/02/17 11:29 03/04/17 20:09 2.5 MG Senna/Docusate Sodium (Senokot S Tab) 1 tab BID PO 03/04/17 09:00 04/03/17 08:59 03/05/17 08:57 1 TAB Heparin Sodium (Porcine) (Heparin Sq 5000 Unit/0.5ml) 5,000 unit Q12 SQ 03/04/17 10:00 04/03/17 09:59 03/05/17 09:02 5,000 UNIT Lisinopril (Zestril Tab) 2.5 mg HS PO 03/04/17 21:00 04/03/17 20:59 03/04/17 21:57 2.5 MG Diphenhydramine HCl (Benadryl Cap) 50 mg HS PO 03/04/17 21:00 04/03/17 20:59 03/04/17 21:57 50 MG Ciprofloxacin (Cipro Tab) 500 mg BID PO 03/05/17 09:00 03/15/17 08:59 03/05/17 08:55 500 MG Assessment and Plan Assessment and Plan: 51 y/o with multiple comorbid problems who is post op day 2 from laparascopic cholecystectomy. Recovering well overall and can be d/c home today. 1. Post-Op -Continue monitoring drainage -Cipro [address] Walker 2. CHF -May transition to her home meds; spironolactone, torsemide. Observe first dose in hospital then dc. -Continue digoxin -Tolerating Patrick, Toprol 3. CAD w/ hx of [place] -Continue Toprol -Nitroglycerin prn -Ranexa 4. CKD 3 -Creatinine stable 5) COPD -Albuterol provided PRN. 6) RAJINDER -CPAP 7) DM - Home Lantus 20 units qpm -Glipizide 10 mg po bid 8) Hypothyroid -Synthroid 88mcg 9) LACY -impressive hepatomegaly in procedure -recommend follow up with GI Discharge planning: home
[2017-03-05 10:49] VITALS: BP 96/63; PULSE 50; TEMP 36.5; O2SAT 93
--- NOTE | 2017-03-05 16:13 | Progress Note ---
Subjective Date of Service: Mar 05, 2017. Subjective pt was seen prior to leaving and appeared in stable condition Review of Systems Constitutional: No fever, No chills, No weakness, No fatigue Respiratory: No cough, No sputum, No wheezing, No shortness of breath, No dyspnea on exertion Cardiac: No chest pain, No edema Abdomen: No pain, No nausea, No vomiting, No diarrhea Musculoskeletal: No joint pain, No muscle pain Objective Vital Signs Date Time Temp Pulse Resp B/P (MAP) Pulse Ox O2 Delivery O2 Flow Rate FiO2 03/05/17 10:49 36.5 50 16 93 Room Air 03/05/17 07:50 Room Air 03/05/17 07:08 36.5 50 16 96/63 (74) 93 Room Air 03/04/17 23:16 64 97 2.0 03/04/17 23:07 36.9 53 20 99/65 (76) 96 CPAP 03/04/17 20:10 64 18 94 Room Air 03/04/17 19:45 Room Air Physical Exam General Appearance: WD/WN, + mild distress Neck: supple, no JVD Respiratory/Chest: chest non-tender, lungs clear, normal breath sounds Cardiovascular: regular rate, rhythm, no murmur Abdomen: normal bowel sounds, soft, + guarding, + tenderness Neurologic/Psychiatric: alert, oriented x 3 Laboratory Results Last 24 Hours Test 03/04/17 17:26 03/04/17 21:07 03/05/17 07:53 03/05/17 11:49 Bedside Glucose 198 mg/dl 207 mg/dl 113 mg/dl 138 mg/dl Assessment and Plan 51 y/o F Hx morbid obesity, chronic systolic CHF, COPD, CKD 3, CAD, RAJINDER. Admitted for elective laparoscopic cholecystectomy. Pt is post-op, c/o of some related pain but is otherwise recovering well. Denies SOB, CP fevers or vomiting. Describes nausea. Chronic systolic heart failure EF 25% r Toprol - JESICA CAD - previous NC's PRN NTG, Ranexa. CKD3 remains stable COPD - Albuterol provided PRN. Cont Singulair. RAJINDER - CPAP HS DM - resume home regime Hypothyroid - cont Synthroid Discharge planning: home
--- NOTE | 2017-03-08 11:02 | DISCHARGE SUMMARY ---
PRIMARY DISCHARGE DIAGNOSES: 1. Cholelithiasis and chronic cholecystitis. 2. Hepatomegaly. SECONDARY DISCHARGE DIAGNOSES: 1. Chronic systolic congestive heart failure. 2. Chronic obstructive pulmonary disease. 3. Type 2 diabetes. 4. Chronic kidney disease stage III. 5. Coronary artery disease. 6. Sleep apnea. 7. Hypothyroidism. PROCEDURE PERFORMED: Laparoscopic cholecystectomy. CONSULTATIONS: [facility] Hospitalist to assist in medical management. HOSPITAL COURSE: The patient is a 51-year-old female brought in through same day and taken to the operating room for laparoscopic cholecystectomy. She was transferred to [facility] care postoperatively given her multiple medical conditions and the hospitalist consulted routinely. She remained stable overnight, was transferred to regular floor on postoperative day 1. Subcutaneous heparin was used for DVT prophylaxis. She was continued on IV antibiotics. A MARQUIS drain had been placed was draining about 160 mL per shift. Her blood sugars were covered with sliding scale insulin. She was tolerating advancing diet. By day 2, she was increasing activity, was stable for discharge home with the drain and on oral antibiotics. PHYSICAL EXAMINATION: Her abdomen was benign. MARQUIS drainage was 180 mL overnight. DISCHARGE INSTRUCTIONS: Discharge home. Follow up with Dr. Walker's office in 3-4 days for removal of the drain. DISCHARGE MEDICATIONS: Cipro 500 mg p.o. b.i.d. x5 days and [place] 1-2 tablets every 6 hours as needed. Resume home medications: Aspirin 81 mg daily; Lipitor 40 mg daily, digoxin 0.25 mg Wednesday, Wednesday, Wednesday and 0.5 mg Wednesday, Wednesday, , Wednesday; Benadryl 50 mg at bedtime; Prozac 40 mg daily; Folvite 1 mg daily, glipizide ER 10 mg b.i.d.; Lantus 20 units in the evening; Synthroid 88 mcg daily; Zestril 2.5 mg daily; Toprol-XL 50 mg daily; p.r.n. Nitrostat 0.4 mg; Zofran 4 mg as needed; potassium chloride 20 mEq daily; Ranexa 1 tab 1000 mg b.i.d.; Aldactone 25 mg daily; Restoril 45 mg at bedtime; Spiriva 1 puff daily; and Demadex 150 mg daily. [facility]
== END 2017-03-05 12:42 | disposition home or self-care (01) ==
LOC: C.ACU 05:19 → C.2E 08:48 → ENRESERV 09:43 → C.MSN 03-04 08:43
PROVIDERS: ADMIT Surgery; ATTEND Surgery
DX: K80.10 Calculus of gallbladder with chronic cholecystitis without obstruction (principal); I50.22 Chronic systolic (congestive) heart failure; J44.9 Chronic obstructive pulmonary disease, unspecified; E11.22 Type 2 diabetes mellitus with diabetic chronic kidney disease; N18.3 Chronic kidney disease, stage 3 (moderate); I25.10 Atherosclerotic heart disease of native coronary artery without angina pectoris; G47.30 Sleep apnea, unspecified; E03.9 Hypothyroidism, unspecified; J45.909 Unspecified asthma, uncomplicated; I25.2 Old myocardial infarction; E66.01 Morbid (severe) obesity due to excess calories; Z68.42 Body mass index [BMI] 45.0-49.9, adult; Z79.02 Long term (current) use of antithrombotics/antiplatelets

== ENCOUNTER 2017-03-16 17:31 | Emergency (ER) | payer OTHER ==
[~2017-03-16] VITALS: Ht 162.6 cm; Wt 115.6 kg
[~2017-03-16 17:31] MED LIST changes: +CIPR-255 PO
[2017-03-16 17:39] VITALS: TEMP 36.8; Ht 162.6 cm; Wt 115.6 kg
[2017-03-16] MEDS ORDERED: SODIUM CHLORIDE 0.9% 1000ML 1,000 ML IV STA (17:51)
[2017-03-16] MEDS ORDERED: ONDANSETRON INJ 2 MG/ML 2 ML VIAL IV STA (17:51)
[2017-03-16] MEDS ORDERED: MoRPHine SULFATE 10 MG/ML CARP/VIAL IV STA (17:51)
[2017-03-16 18:36] LABS: ISTAT CREATININE 1.5 mg/dl (0.6-1.3); ISTAT HEMOGLOBIN 15.6 g/dl (12.0-16.0); ISTAT IONIZED CALCIUM 0.62 mmol/l (1.12-1.32)
[2017-03-16] MEDS ORDERED: OPTIRAY 320 IV PRN (18:45)
[2017-03-16 18:59] LABS: URINE APPEARANCE CLEAR (CLEAR); URINE BILIRUBIN NEG (NEG); URINE COLOR AMBER; URINE NITRITE NEG (NEG); URINE PH 5.5 (4.5-7.5); URINE SPECIFIC GRAVITY 1.015 (1.000-1.030); UROBILINOGEN NEG (NEG)
[2017-03-16 19:03] LABS: REVIEW REQ? NO
[2017-03-16 19:21] LABS: MANUAL MICROSCOPIC REQUIRED? YES
[2017-03-16 19:23] LABS: BASO % 0.2 %; BASO ABS # 0.02 K/uL (0-0.2); COMPLETE YES; EOS % 1.7 %; HEMATOCRIT 43.3 % (37-47); IG% 0.3 %; LYMPH % 18.5 %; LYMPH ABS # 2.18 K/uL (1.2-3.4); MEAN CELL VOLUME 84.7 fL (80-100); MEAN CORPUSCULAR HGB CONC 31.9 g/dl (32-36); MONO % 3.9 %; NEUT % 75.4 %; PLATELET COUNT 233 K/uL (130-400); RED BLOOD COUNT 5.11 M/uL (4.2-5.4); WHITE BLOOD COUNT 11.77 K/uL (4.8-10.8)
[2017-03-16 19:26] LABS: URINE BACTERIA 1+ (NEG); URINE RBC 0-4 /hpf (0-4)
[2017-03-16 19:34] LABS: BUN/CREATININE RATIO 14.9 (10-20); CALCIUM 9.2 mg/dl (8.5-10.1); CREATININE 1.5 mg/dl (0.60-1.20); POTASSIUM 3.7 mmol/L (3.5-5.1)
[2017-03-16 19:48] LABS: ZZUR CULT IF INDIC CLEAN CATCH YES
--- NOTE | 2017-03-16 21:07 | DIAGNOSTIC IMAGING REPORT ---
ABDOMEN AND PELVIS CT WITH IV AND ORAL CONTRAST CT DOSE: 1555.26 mGy.cm HISTORY: Pain right mid to low back pain/recent cholecystectomy TECHNIQUE: Multiaxial CT images of the abdomen and pelvis were performed following the use of intravenous and oral contrast. COMPARISON STUDY: None. FINDINGS: Lung bases are clear. Mild hepatomegaly with diffuse in homogeneity. Trace perihepatic infiltrative change. Bowel pattern is normal. Minimal cortical scarring of the kidneys. No evidence for hydronephrosis. Appendix is normal. Several scattered colonic diverticuli with no evidence for diverticulitis. IMPRESSION: 1. Diffusely heterogeneous liver. 2. Diagnostic possibilities include hepatitis, atypical cirrhosis, versus an infiltrating neoplastic disorder. 3. Possibility of diffuse hepatic and insufficiency is also possible 4. Study is otherwise negative status post cholecystectomy. 5. Bowel pattern is nonobstructive. Scattered colonic and sigmoid diverticuli with no acute evidence for diverticulitis. Electronically signed by: Ozzy Hemphill M.D. 03/16/2017 9:06 PM Dictated Date/Time: 03/16/2017 9:02 PM
[2017-03-16 22:32] VITALS: BP 118/65; PULSE 66; O2SAT 95
[2017-03-16] MEDS ORDERED: OXYC-57 PO (22:45)
--- NOTE | 2017-03-16 22:46 | EMERGENCY ROOM VISIT NOTE ---
History First contact with patient: 17:42 Chief Complaint: FLANK PAIN Stated Complaint: RIGHT SIDE HURTS History of Present Illness The patient is a 51 year old female who presents to the Emergency Room with complaints of right mid to low back pain. The patient states that she had her gallbladder removed on March 03. Yesterday she started having pain in the right mid to lower back which has getting progressively worse. The patient also admits to nausea but denies any vomiting. The patient states she does not have an appetite. The patient also admits that she has had multiple loose bowel movements over the past 2 days. The patient denies any urinary symptoms of frequency, urgency, dysuria or hematuria. The patient denies any fever. The patient is diabetic and states that her blood sugars have been under control. She also has stage III kidney failure but is not on dialysis. She also has an enlarged liver and CHF. The patient states that her surgeon, Dr. Walker told her if she has any pain or problems she is to come to the emergency room. Review of Systems 10 system review was performed and was negative unless stated otherwise history of present illness. Past Medical/Surgical History Medical Problems: (1) Chronic cholecystitis Diabetes, heart disease, CHF, hypertension, stage III renal disease, COPD, hyperlipidemia, kidney stones, recent cholecystectomy, 3 C-sections Social History Smoking Status: Current Every Day Smoker Alcohol Use: none Marital Status: single (she smokes) Housing Status: lives with roommate Occupation Status: unemployed Current/Historical Medications Scheduled Aspirin (Aspirin Ec), 81 MG PO QAM Atorvastatin (Lipitor), 40 MG PO HS Digoxin (Digoxin), 0.25 MG PO ,, Digoxin (Digoxin), 0.125 MG PO SUN, ES, TH,SAT Diphenhydramine Hcl (Sleep) (Diphenhydramine Hcl), 1 TAB PO HS Fluoxetine (Prozac), 40 MG PO QAM Folic Acid (Folvite), 1 MG PO QAM Glipizide (Glipizide ER), 10 MG PO BID Insulin Glargine (Lantus), 20 UNITS SC QPM Levothyroxine Sodium (Levothyroxine Sodium), 1 TAB PO QAM Lisinopril (Zestril), 2.5 MG PO HS Metoprolol Succ (Toprol Xl) (Toprol-Xl), 50 MG PO QAM Nitroglycerin (Nitrostat), 0.4 MG UT PRN Ranolazine (Ranexa), 1 TAB PO BID Spironolactone (Aldactone), 25 MG PO QPM Temazepam (Restoril), 15 MG PO HS Temazepam (Restoril), 30 MG PO HS Torsemide (Demadex), 150 MG PO QPM Scheduled PRN Hydrocodone/Acetaminophen 5MG/325MG ([place] 5MG/325MG), 1 TABLET PO TID PRN for Pain Hydrocodone/Acetaminophen 5MG/325MG ([place] 5MG/325MG), 1-2 TABLET PO q 6 hrs PRN for Pain Ondansetron (Ondansetron HCl), 4 MG PO QID PRN for Nausea or Vomiting Tiotropium [place] (Spiriva Handihaler), 1 CAP INH DAILY PRN for PRN Allergies Coded Allergies: Clopidogrel (Verified Allergy, Mild, HIVES, 03/16/17) Physical Exam Vital Signs Date Time Temp Pulse Resp B/P (MAP) Pulse Ox O2 Delivery O2 Flow Rate FiO2 03/16/17 22:32 66 18 118/65 95 Room Air 03/16/17 20:04 70 20 115/54 96 Room Air 03/16/17 17:39 36.8 69 20 102/60 100 Room Air Physical Exam GENERAL: Obese 51-year-old female appears in no acute distress. MENTAL Status: Alert and oriented 3. MOUTH: Mucosa is moist NECK: Supple, no lymphadenopathy noted. No carotid bruits noted. LUNGS: Clear auscultation without wheezes rales or rhonchi. Breath sounds are distant bilaterally. CARDIAC: Regular rate and rhythm without murmur. Pulses is full and equal throughout. BACK: Right CVA tenderness noted. ABDOMEN: Positive bowel sounds all 4 quadrants. Multiple small laparoscopic incisions noted from previous surgery. Soft, generalized tenderness to palpation throughout the entire abdomen. No erythema or edema noted. EXTREMITIES: Bilateral severe edema lower legs. No cyanosis noted. Medical Decision & Procedures ER Provider Diagnostic Interpretation: ABDOMEN AND PELVIS CT WITH IV AND ORAL CONTRAST CT DOSE: 1555.26 mGy.cm HISTORY: Pain right mid to low back pain/recent cholecystectomy TECHNIQUE: Multiaxial CT images of the abdomen and pelvis were performed following the use of intravenous and oral contrast. COMPARISON STUDY: None. FINDINGS: Lung bases are clear. Mild hepatomegaly with diffuse in homogeneity. Trace perihepatic infiltrative change. Bowel pattern is normal. Minimal cortical scarring of the kidneys. No evidence for hydronephrosis. Appendix is normal. Several scattered colonic diverticuli with no evidence for diverticulitis. IMPRESSION: 1. Diffusely heterogeneous liver. 2. Diagnostic possibilities include hepatitis, atypical cirrhosis, versus an infiltrating neoplastic disorder. 3. Possibility of diffuse hepatic and insufficiency is also possible 4. Study is otherwise negative status post cholecystectomy. 5. Bowel pattern is nonobstructive. Scattered colonic and sigmoid diverticuli with no acute evidence for diverticulitis. Electronically signed by: Ozzy Hemphill M.D. 03/16/2017 9:06 PM Dictated Date/Time: 03/16/2017 9:02 PM Laboratory Results 03/16/17 18:55 Red Blood Count 5.11, Mean Corpuscular Volume 84.7, Mean Corpuscular Hemoglobin 27.0, Mean Corpuscular Hemoglobin Concent 31.9, Mean Platelet Volume 10.0, Neutrophils (%) (Auto) 75.4, Lymphocytes (%) (Auto) 18.5, Monocytes (%) (Auto) 3.9, Eosinophils (%) (Auto) 1.7, Basophils (%) (Auto) 0.2, Neutrophils # (Auto) 8.88, Lymphocytes # (Auto) 2.18, Monocytes # (Auto) 0.46, Eosinophils # (Auto) 0.20, Basophils # (Auto) 0.02 03/16/17 18:55 Test 03/16/17 18:23 03/16/17 18:32 03/16/17 18:55 Bedside Hemoglobin 15.6 g/dl (12.0-16.0) Bedside Hematocrit 46 % (37-47) Bedside Sodium 129 mEq/L (135-144) Bedside Potassium 7.8 mEq/L (3.3-5.0) Bedside Chloride 107 mEq/L (101-112) Bedside Total CO2 13 mEq/l (24-31) Bedside Blood Urea Nitrogen 32 mg/dl (7-18) Bedside Creatinine 1.5 mg/dl (0.6-1.3) Bedside Glucose (other) 172 mg/dl (70-99) Bedside Ionized Calcium ([place]) 0.62 mmol/l (1.12-1.32) Urine Color ELY Urine Appearance CLEAR (CLEAR) Urine pH 5.5 (4.5-7.5) Urine Specific [place] 1.015 (1.000-1.030) Urine Protein NEG (NEG) Urine Glucose (UA) NEG (NEG) Urine Ketones NEG (NEG) Urine Occult Blood NEG (NEG) Urine Nitrite NEG (NEG) Urine Bilirubin NEG (NEG) Urine Urobilinogen NEG (NEG) Urine Leukocyte Esterase NEG (NEG) Urine RBC 0-4 /hpf (0-4) Urine WBC 1-5 /hpf (0-5) Urine Epithelial Cells 10-20 /lpf (0-5) Urine Bacteria 1+ (NEG) Urine Yeast PRESENT (NONE PRSENT) White Blood Count 11.77 K/uL (4.8-10.8) Red Blood Count 5.11 M/uL (4.2-5.4) Hemoglobin 13.8 g/dL (12.0-16.0) Hematocrit 43.3 % (37-47) Mean Corpuscular Volume 84.7 fL (80-100) Mean Corpuscular Hemoglobin 27.0 pg (25-34) Mean Corpuscular Hemoglobin Concent 31.9 g/dl (32-36) Platelet Count 233 K/uL (130-400) Mean Platelet Volume 10.0 fL (7.4-10.4) Neutrophils (%) (Auto) 75.4 % Lymphocytes (%) (Auto) 18.5 % Monocytes (%) (Auto) 3.9 % Eosinophils (%) (Auto) 1.7 % Basophils (%) (Auto) 0.2 % Neutrophils # (Auto) 8.88 K/uL (1.4-6.5) Lymphocytes # (Auto) 2.18 K/uL (1.2-3.4) Monocytes # (Auto) 0.46 K/uL (0.11-0.59) Eosinophils # (Auto) 0.20 K/uL (0-0.5) Basophils # (Auto) 0.02 K/uL (0-0.2) RDW Standard Deviation 50.1 fL (36.4-46.3) RDW Coefficient of Variation 16.0 % (11.5-14.5) Immature Granulocyte % (Auto) 0.3 % Immature Granulocyte # (Auto) 0.03 K/uL (0.00-0.02) Prothrombin Time 11.0 SECONDS (9.0-12.0) Prothromb Time International Ratio 1.0 (0.9-1.1) Activated Partial Thromboplast Time 26.6 SECONDS (21.0-31.0) Partial Thromboplastin Ratio 1.0 Anion Gap 7.0 mmol/L (3-11) Est Creatinine Clear Calc Drug Dose 55.4 ml/min Estimated GFR () 46.3 Estimated GFR (Non- 39.9 BUN/Creatinine Ratio 14.9 (10-20) Calcium Level 9.2 mg/dl (8.5-10.1) Total Bilirubin 0.9 mg/dl (0.2-1) Direct Bilirubin 0.4 mg/dl (0-0.2) Aspartate Amino Transf (AST/SGOT) 36 U/L (15-37) Alanine Aminotransferase (ALT/SGPT) 62 U/L (12-78) Alkaline Phosphatase 393 U/L (45-117) Total Protein 7.7 gm/dl (6.4-8.2) Albumin 3.4 gm/dl (3.4-5.0) Lipase 376 U/L (73-393) Hepatitis B Surface Antigen NEG (NEG) Hepatitis C Antibody NEG (NEG) Medications Administered Medications (Trade) Dose Ordered Sig/Penelope Route Start Time Stop Time Status Last Admin Dose Admin Sodium Chloride 1,000 ml @ 75 mls/hr [id number] STAT IV 03/16/17 17:51 03/17/17 07:10 03/16/17 18:31 75 MLS/HR Ondansetron HCl (Zofran Inj) 4 mg NOW STAT IV 03/16/17 17:51 03/16/17 17:54 DC 03/16/17 18:31 4 MG Morphine Sulfate (MoRPHine SULFATE INJ) 6 mg NOW STAT IV 03/16/17 17:51 03/16/17 17:54 DC 03/16/17 18:31 6 MG ED Course The patient was evaluated. The patient's EMR and medication list were reviewed. I discussed the case with who agrees with treatment plan. IV access was obtained. The patient was given fluids at a rate of 75 mL' s per hour. I-STAT was ordered. CBC and differential, LFTs and lipase levels were ordered. Urinalysis was ordered.the patient was given morphine 6 mg IV for pain and Zofran 4 mg IV for nausea.. We will await i-STAT results before ordering CAT scan. I-STAT revealed a creatinine of 1.5 so we will go ahead with a CAT scan. Labs are reviewed. The patient's white count slightly elevated at 11,000. Creatinine was 1.5 and BUN was 22. Urinalysis revealed bacteria but there was a lot of epithelial cells. There was also some yeast in the urine. CT was interpreted as above by the radiologist without any abnormal intestinal findings or any abdominal abscess. Her liver was heterogeneous and the differential diagnosis included neoplasm, cirrhosis, hepatitis. Therefore hepatitis panel was ordered. Hepatitis B surface antigen and hepatitis C core antigen were negative. Others are pending. The patient was reevaluated on several occasions throughout ER stay and was comfortable. She did not require any additional pain medication. The patient was independently evaluated by Dr. valdes who agreed with treatment plan. The patient was discharged home in stable condition with a family member driving. Prescription drug monitoring program was accessed and there are no current prescriptions Medical Decision Differential diagnosis include abscess, biliary obstruction, hepatitis, renal calculi, bowel obstruction Impression Primary Impression: Right flank pain Additional Impression: S/P cholecystectomy Departure Information Dispostion Home / Self-Care Condition GOOD Prescriptions Oxycodone/Acetaminophen 5MG/325MG (PERCOCET 5MG/325MG) Tab 1-2 TABS PO Q6 Y for Pain, #14 TAB For Initial Treatment Prov: Deanna Hemphill PA-C 03/16/17 Referrals Carlos Guardado M.D. (PCP) Keshav Walker M.D. Forms HOME CARE DOCUMENTATION FORM, IMPORTANT VISIT INFORMATION Patient Instructions [employer] Additional Instructions Take Percocet as needed for pain. Call Dr. Walker tomorrow for a follow-up appointment in 2 days for reevaluation. If you experience any uncontrolled nausea vomiting, high fevers, severe abdominal pain return to ER immediately. Problem Qualifiers
--- NOTE | 2017-03-16 22:55 | EMERGENCY ROOM VISIT NOTE ---
ED Visit Note First contact with patient: 17:42 Pt seen and evaluated with the PA. Discussed evaluation here, results, and plan. Questions answered at bedside. Pt well appearing. VS stable. Pt agreeable with plan.
== END 2017-03-16 22:58 | disposition home or self-care (01) ==
LOC: C.EDB 17:32
DX: R10.9 Unspecified abdominal pain (principal); Z90.49 Acquired absence of other specified parts of digestive tract; R19.7 Diarrhea, unspecified; E11.22 Type 2 diabetes mellitus with diabetic chronic kidney disease; I13.0 Hypertensive heart and chronic kidney disease with heart failure and stage 1 through stage 4 chronic kidney disease, or unspecified chronic kidney disease; N18.3 Chronic kidney disease, stage 3 (moderate); I50.9 Heart failure, unspecified; J44.9 Chronic obstructive pulmonary disease, unspecified; E78.5 Hyperlipidemia, unspecified; F17.200 Nicotine dependence, unspecified, uncomplicated; Z87.442 Personal history of urinary calculi; Z98.891 History of uterine scar from previous surgery; Z79.4 Long term (current) use of insulin; Z79.82 Long term (current) use of aspirin; Z79.84 Long term (current) use of oral hypoglycemic drugs; Z79.899 Other long term (current) drug therapy

== ENCOUNTER → 2017-04-06 | Outpatient (CLI) | payer OTHER ==
[~2017-04-06] MED LIST changes: -CIPR-255 PO; +OXYC-57 PO; -POTA20TA16 PO
[2017-04-06 13:26] LABS: ESTIMATED AVERAGE GLUCOSE 154 mg/dl; HA1C FLAG Normal (Normal)
[2017-04-06 13:41] LABS: BLOOD UREA NITROGEN 22 mg/dl (7-18); CALCIUM 9.1 mg/dl (8.5-10.1); CARBON DIOXIDE 33 mmol/L (21-32); CHLORIDE 100 mmol/L (98-107); GLUCOSE 96 mg/dl (70-99); POTASSIUM 3.4 mmol/L (3.5-5.1); SODIUM 139 mmol/L (136-145)
== END | disposition home or self-care (01) ==
LOC: C.LABMFLN 10:12
PROVIDERS: ATTEND Family Medicine
DX: E03.9 Hypothyroidism, unspecified (principal); E11.9 Type 2 diabetes mellitus without complications

== ENCOUNTER → 2017-05-17 | Outpatient (CLI) | payer OTHER ==
[2017-05-17 13:47] LABS: THYROID STIMULATING HORMONE 3.32 uIu/ml (0.300-4.500)
== END | disposition home or self-care (01) ==
LOC: C.LABMFLN 08:27
PROVIDERS: ATTEND Family Medicine
DX: I10 Essential (primary) hypertension (principal); E03.9 Hypothyroidism, unspecified; E78.00 Pure hypercholesterolemia, unspecified

== ENCOUNTER → 2017-06-29 | Outpatient (CLI) | payer OTHER ==
[2017-06-29 13:07] LABS: BASO % 0.2 %; BASO ABS # 0.03 K/uL (0-0.2); COMPLETE YES; EOS % 1.5 %; HEMATOCRIT 37.8 % (37-47); IG% 0.5 %; LYMPH % 16.3 %; LYMPH ABS # 2.12 K/uL (1.2-3.4); MEAN CELL VOLUME 91.1 fL (80-100); MEAN CORPUSCULAR HEMOGLOBIN 29.2 pg (25-34); MEAN PLATELET VOLUME 10.1 fL (7.4-10.4); MONO % 3.5 %; PLATELET COUNT 259 K/uL (130-400); RED BLOOD COUNT 4.15 M/uL (4.2-5.4); WHITE BLOOD COUNT 12.99 K/uL (4.8-10.8)
[2017-06-29 14:01] LABS: ALT/SGPT 44 U/L (12-78); BLOOD UREA NITROGEN 25 mg/dl (7-18); BUN/CREATININE RATIO 14.5 (10-20); CALCIUM 9.2 mg/dl (8.5-10.1); CARBON DIOXIDE 32 mmol/L (21-32); CHLORIDE 97 mmol/L (98-107); GLUCOSE 194 mg/dl (70-99); MAGNESIUM 2.5 mg/dl (1.8-2.4); SODIUM 137 mmol/L (136-145)
[2017-06-29 14:11] LABS: ALB/GLOB RATIO 0.9 (0.9-2); ALKALINE PHOSPHATASE 329 U/L (45-117); AST/SGOT 28 U/L (15-37)
== END | disposition home or self-care (01) ==
LOC: C.LABMFLN 10:26
PROVIDERS: ATTEND Physician Assistant
DX: R19.7 Diarrhea, unspecified (principal)

== ENCOUNTER → 2017-06-30 | Outpatient (CLI) | payer OTHER ==
[2017-07-02 16:33] LABS: CRYPTOSPORIDIUM AG TC 37213 NOT DETECTED (NOT DETECTED); O&P GIARDIA AG NOT DETECTED (NOT DETECTED)
== END | disposition home or self-care (01) ==
LOC: C.LABMFLN 16:27
PROVIDERS: ATTEND Family Medicine
DX: R19.7 Diarrhea, unspecified (principal)

== ENCOUNTER → 2017-09-07 | Outpatient (CLI) | payer OTHER ==
[~2017-09-07] MED LIST changes: -FOLI1TAB7 PO; +FOLI1TAB8 PO
[2017-09-07 12:50] LABS: BASO % 0.3 %; BASO ABS # 0.03 K/uL (0-0.2); COMPLETE YES; EOS % 0.4 %; HEMATOCRIT 35.7 % (37-47); IG% 0.4 %; LYMPH % 24.1 %; LYMPH ABS # 2.42 K/uL (1.2-3.4); MEAN CELL VOLUME 91.3 fL (80-100); MEAN CORPUSCULAR HEMOGLOBIN 30.2 pg (25-34); MEAN CORPUSCULAR HGB CONC 33.1 g/dl (32-36); MEAN PLATELET VOLUME 10.1 fL (7.4-10.4); MONO % 4.6 %; NEUT % 70.2 %; PLATELET COUNT 230 K/uL (130-400); RED BLOOD COUNT 3.91 M/uL (4.2-5.4); WHITE BLOOD COUNT 10.04 K/uL (4.8-10.8)
[2017-09-07 13:27] LABS: ESTIMATED AVERAGE GLUCOSE 203 mg/dl; HA1C FLAG Normal (Normal)
[2017-09-07 13:30] LABS: ALT/SGPT 43 U/L (12-78); BLOOD UREA NITROGEN 34 mg/dl (7-18); BUN/CREATININE RATIO 21.3 (10-20); CALCIUM 9.3 mg/dl (8.5-10.1); CARBON DIOXIDE 31 mmol/L (21-32); CHLORIDE 99 mmol/L (98-107); CHOLESTEROL 112 mg/dl (0-200); CHOLESTEROL/HDL RATIO 3.2; CREATININE 1.61 mg/dl (0.60-1.20); GLUCOSE 113 mg/dl (70-99); HDL CHOLESTEROL 35 mg/dl; LDL CHOLESTEROL CALCULATED 53 mg/dl; SODIUM 135 mmol/L (136-145); TRIGLYCERIDES 118 mg/dl (0-150); VERY LOW DENSITY LIPOPROT CALC 24 mg/dl
[2017-09-07 13:34] LABS: ALB/GLOB RATIO 0.9 (0.9-2); ALKALINE PHOSPHATASE 285 U/L (45-117); AST/SGOT 22 U/L (15-37)
== END | disposition home or self-care (01) ==
LOC: C.LABMFLN 08:30
PROVIDERS: ATTEND Family Medicine
DX: Z00.00 Encounter for general adult medical examination without abnormal findings (principal); J20.9 Acute bronchitis, unspecified; I50.30 Unspecified diastolic (congestive) heart failure; E78.00 Pure hypercholesterolemia, unspecified; I10 Essential (primary) hypertension; E11.9 Type 2 diabetes mellitus without complications; I25.10 Atherosclerotic heart disease of native coronary artery without angina pectoris

== ENCOUNTER → 2017-11-29 | Outpatient (CLI) | payer OTHER ==
[~2017-11-29] MED LIST changes: -METO50TA7 PO; +METO50TA8 PO; -OXYC-57 PO
[2017-11-29 17:58] LABS: BASO % 0.1 %; BASO ABS # 0.02 K/uL (0-0.2); EOS % 0.1 %; EOS ABS # 0.02 K/uL (0-0.5); HEMATOCRIT 36.1 % (37-47); HEMOGLOBIN 11.8 g/dL (12.0-16.0); IG# 0.09 K/uL (0.00-0.02); LYMPH % 22.3 %; LYMPH ABS # 3.57 K/uL (1.2-3.4); MEAN CELL VOLUME 92.3 fL (80-100); MEAN CORPUSCULAR HEMOGLOBIN 30.2 pg (25-34); MEAN CORPUSCULAR HGB CONC 32.7 g/dl (32-36); MONO % 4.9 %; MONO ABS # 0.79 K/uL (0.11-0.59); NEUT ABS # 11.55 K/uL (1.4-6.5); PLATELET COUNT 246 K/uL (130-400); RED CELL DISTRIBUTION WIDTH CV 14.3 % (11.5-14.5); RED CELL DISTRIBUTION WIDTH SD 48.3 fL (36.4-46.3); WHITE BLOOD COUNT 16.04 K/uL (4.8-10.8)
[2017-11-29 18:04] LABS: ALBUMIN 3.5 gm/dl (3.4-5.0); ALT/SGPT 31 U/L (12-78); AST/SGOT 13 U/L (15-37); BLOOD UREA NITROGEN 38 mg/dl (7-18); CALCIUM 9.1 mg/dl (8.5-10.1); CARBON DIOXIDE 31 mmol/L (21-32); CREATININE 2.07 mg/dl (0.60-1.20); GLUCOSE 137 mg/dl (70-99); POTASSIUM 4.1 mmol/L (3.5-5.1); SODIUM 135 mmol/L (136-145)
[2017-11-29 18:06] LABS: ALKALINE PHOSPHATASE 203 U/L (45-117); TOTAL PROTEIN 7.2 gm/dl (6.4-8.2)
== END | disposition home or self-care (01) ==
LOC: C.LABMFLN 16:25
PROVIDERS: ATTEND Family Medicine
DX: J18.9 Pneumonia, unspecified organism (principal); I95.9 Hypotension, unspecified

== ENCOUNTER → 2017-11-30 | Outpatient (CLI) | payer OTHER ==
[2017-11-30 18:46] LABS: BASO % 0.1 %; BASO ABS # 0.02 K/uL (0-0.2); EOS % 0.1 %; EOS ABS # 0.02 K/uL (0-0.5); HEMATOCRIT 36.4 % (37-47); HEMOGLOBIN 12.1 g/dL (12.0-16.0); IG# 0.09 K/uL (0.00-0.02); LYMPH % 21.1 %; LYMPH ABS # 2.88 K/uL (1.2-3.4); MEAN CELL VOLUME 92.6 fL (80-100); MEAN CORPUSCULAR HEMOGLOBIN 30.8 pg (25-34); MEAN CORPUSCULAR HGB CONC 33.2 g/dl (32-36); MEAN PLATELET VOLUME 9.8 fL (7.4-10.4); MONO % 4.2 %; MONO ABS # 0.57 K/uL (0.11-0.59); NEUT % 73.8 %; PLATELET COUNT 228 K/uL (130-400); RED CELL DISTRIBUTION WIDTH CV 14.4 % (11.5-14.5); RED CELL DISTRIBUTION WIDTH SD 49.2 fL (36.4-46.3); WHITE BLOOD COUNT 13.68 K/uL (4.8-10.8)
[2017-11-30 19:15] LABS: BLOOD UREA NITROGEN 39 mg/dl (7-18); CALCIUM 9.1 mg/dl (8.5-10.1); CARBON DIOXIDE 28 mmol/L (21-32); CREATININE 1.97 mg/dl (0.60-1.20); GLUCOSE 154 mg/dl (70-99); POTASSIUM 4.1 mmol/L (3.5-5.1); SODIUM 134 mmol/L (136-145)
== END | disposition home or self-care (01) ==
LOC: C.LABMFLN 16:35
PROVIDERS: ATTEND Family Medicine
DX: J18.9 Pneumonia, unspecified organism (principal); I95.9 Hypotension, unspecified; Z00.00 Encounter for general adult medical examination without abnormal findings

== ENCOUNTER → 2017-12-15 | Outpatient (CLI) | payer OTHER ==
[2017-12-15 12:35] LABS: BASO % 0.2 %; BASO ABS # 0.02 K/uL (0-0.2); EOS % 0.2 %; EOS ABS # 0.02 K/uL (0-0.5); HEMATOCRIT 36.7 % (37-47); HEMOGLOBIN 12.2 g/dL (12.0-16.0); IG# 0.04 K/uL (0.00-0.02); LYMPH % 20.3 %; LYMPH ABS # 2.22 K/uL (1.2-3.4); MEAN CELL VOLUME 92.4 fL (80-100); MEAN CORPUSCULAR HEMOGLOBIN 30.7 pg (25-34); MEAN CORPUSCULAR HGB CONC 33.2 g/dl (32-36); MEAN PLATELET VOLUME 10.2 fL (7.4-10.4); MONO % 5.2 %; MONO ABS # 0.57 K/uL (0.11-0.59); NEUT % 73.7 %; NEUT ABS # 8.04 K/uL (1.4-6.5); PLATELET COUNT 247 K/uL (130-400); RED CELL DISTRIBUTION WIDTH CV 14.2 % (11.5-14.5); RED CELL DISTRIBUTION WIDTH SD 47.5 fL (36.4-46.3); WHITE BLOOD COUNT 10.91 K/uL (4.8-10.8)
[2017-12-15 13:50] LABS: BLOOD UREA NITROGEN 28 mg/dl (7-18); CALCIUM 9.3 mg/dl (8.5-10.1); CARBON DIOXIDE 30 mmol/L (21-32); CREATININE 1.72 mg/dl (0.60-1.20); GLUCOSE 272 mg/dl (70-99); POTASSIUM 4.1 mmol/L (3.5-5.1); SODIUM 131 mmol/L (136-145)
== END | disposition home or self-care (01) ==
LOC: C.LABMFLN 09:47
PROVIDERS: ATTEND Family Medicine
DX: E10.22 Type 1 diabetes mellitus with diabetic chronic kidney disease (principal); D72.829 Elevated white blood cell count, unspecified

== ENCOUNTER → 2018-04-13 | Outpatient (CLI) | payer OTHER ==
[2018-04-13 18:57] LABS: BLOOD UREA NITROGEN 29 mg/dl (7-18); CALCIUM 9.2 mg/dl (8.5-10.1); CARBON DIOXIDE 32 mmol/L (21-32); CREATININE 1.91 mg/dl (0.60-1.20); GLUCOSE 54 mg/dl (70-99); POTASSIUM 3.6 mmol/L (3.5-5.1); SODIUM 138 mmol/L (136-145)
== END | disposition home or self-care (01) ==
LOC: C.LABMFLN 14:50
PROVIDERS: ATTEND Physician Assistant
DX: I25.10 Atherosclerotic heart disease of native coronary artery without angina pectoris (principal); E78.5 Hyperlipidemia, unspecified; I10 Essential (primary) hypertension; I25.5 Ischemic cardiomyopathy; I50.22 Chronic systolic (congestive) heart failure

== ENCOUNTER 2022-03-15 16:27 | Inpatient (IN) ==
--- NOTE | 2022-03-15 17:11 | Emergency Department Note ---
History of Present Illness General Chief complaint: Swelling/Edema to Extremity Stated complaint: SWELLING IN LEGS, CHF Time Seen by Provider: 03/15/22 16:46 Source: patient Mode of arrival: ambulatory Limitations: no limitations History of Present Illness Provider complaint: Shortness of breath, chest pain, leg swelling Maximum Pain Intensity: 7 This is a 56-year-old female who presents emergency department with complaints of shortness of breath, leg swelling, and chest pain. Patient was recently admitted with similar symptoms to [facility] twice within the last 10 days. Patient does have significant cardiac history including CHF and an AICD/pacer. Patient does have chronic kidney disease per her report as well as COPD. Patient states she was admitted from last weekend and discharged Wednesday. Upon returning home she felt unwell again and returned to the hospital yesterday and was admitted overnight into this morning. She states she was awaiting cardiology consultation this morning and as it turned to afternoon she became impatient and requested to leave. Patient left AMA today and came to our facility. Patient states she does have a cough that has been worsening over the last several days and is mostly productive of yellow sputum. She denies fevers or chills. Patient states she does have intermittent right-sided chest discomfort. She admits to shortness of breath that is worse with exertion. She feels despite being given diuretics while in the hospital she has had increased lower extremity edema. Pt seen during a time of high acuity and national emergency pandemic while wearing PPE. Home Medications Medication Instructions Recorded Confirmed Type aspirin 81 mg tablet,delayed 81 mg PO QAM #90 tab 03/30/19 03/15/22 Rx release melatonin 3 mg tablet 3 mg PO HS #90 tab 03/30/19 03/15/22 Rx nitroglycerin 0.4 mg sublingual 0.4 mg SUBLINGUAL DIRECTED PRN 03/30/19 03/15/22 Rx tablet (Nitrostat) #20 tab insulin aspart U-100 100 unit/mL 37 units SUBCUT TIDM ml 11/22/19 03/15/22 History (3 mL) subcutaneous pen blood sugar diagnostic (LuristicTouch #500 ea 11/13/20 01/30/22 Rx Ultra Blue Test Strip) febuxostat 40 mg tablet 40 mg PO DAILY PRN tab 12/12/20 03/15/22 History lisinopril 2.5 mg tablet 2.5 mg PO HS #90 tab 06/04/21 03/15/22 Rx digoxin 250 mcg (0.25 mg) tablet See Rx Instructions PO DAILY #30 06/05/21 03/15/22 Rx tab pen needle, diabetic 31 gauge x #100 ea 06/30/21 01/30/22 Rx 5/16" (BD Ultra-Fine Short Pen Needle) albuterol sulfate 2.5 mg INHALATION QID PRN #75 ml 09/24/21 03/15/22 Rx albuterol sulfate 90 mcg/actuation 2 puff INHALATION Q4H PRN #18 gm 09/24/21 03/15/22 Rx aerosol inhaler torsemide 100 mg tablet 100 mg PO DAILY #90 tab 11/04/21 03/15/22 Rx nystatin 100,000 unit/gram topical 1 applic TOPICAL DAILY PRN #60 gm 11/05/21 03/15/22 Rx powder ranolazine 500 mg tablet,extended 500 mg PO BID #180 tab 01/21/22 03/15/22 Rx release,12 hr (Ranexa) levothyroxine 150 mcg tablet 150 mcg PO DAILY #90 tab 02/04/22 03/15/22 Rx atorvastatin 40 mg tablet 40 mg PO HS 03/15/22 03/15/22 History diphenhydramine HCl 25 mg tablet 25 mg PO HS 03/15/22 03/15/22 History fluticasone fur. 100 mcg-umeclid 1 inh INHALATION DAILY 03/15/22 03/15/22 History 62.5 mcg-vilant 25 mcg inhalat.powder (Trelegy Ellipta) glipizide 10 mg tablet, extended 10 mg PO BID 03/15/22 03/15/22 History release 24 hr insulin glargine 100 unit/mL (3 80 unit SUBCUT QPM 03/15/22 03/15/22 History mL) subcutaneous pen (Lantus Solostar U-100 Insulin) metoprolol succinate 100 mg 100 mg PO DAILY 03/15/22 03/15/22 History tablet,extended release 24 hr pregabalin 25 mg capsule 25 mg PO TID 03/15/22 03/15/22 History spironolactone 25 mg tablet 25 mg PO DAILY 03/15/22 03/15/22 History Allergies Allergy/AdvReac Type Severity Reaction Status Date / Time clopidogrel Allergy Intermediate HIVES Verified 03/15/22 17:36 NSAIDS (Non-Steroidal Allergy Unknown Unknown Verified 03/15/22 17:36 Anti-Inflamma Past Med/Surg History Medical History (Updated 03/16/22 @ 01:30 by Teodora Mendez DO) Abnormal chest CT Acute bronchitis Acute carpal tunnel syndrome of left wrist Acute on chronic systolic heart failure Acute sinusitis Allergic rhinitis Anemia Anxiety Arthritis Bronchitis CAD (coronary artery disease) CHF (congestive heart failure) Chronic anticoagulation Chronic cholecystitis Chronic kidney disease, stage III (moderate) Chronic systolic heart failure CKD stage 3 due to type 2 diabetes mellitus COPD (chronic obstructive pulmonary disease) COPD exacerbation COPD with exacerbation Current smoker Dental decay Diabetes Diabetes Diabetic neuropathy Diarrhea Diastolic congestive heart failure Dyspnea Fatigue Hematuria Herniation of intervertebral disc of cervical region History of blood clots Hypercholesterolemia Hypertension Hypotension Impacted cerumen Implantable cardioverter-defibrillator (ICD) at end of device life This is not a end-of-life I cannot remove this problem to the problem list this point time she decides any ICD due to severe systolic heart failure Influenza A Insomnia Ischemic cardiomyopathy Leukocytosis Maxillary sinusitis Migraine, unspecified, not intractable, without status migrainosus Morbid obesity Morbid obesity LACY (nonalcoholic steatohepatitis) Pneumonia Pulmonary embolism Pulmonary nodules/lesions, multiple Pulpitis Sleep apnea Somatic dysfunction Subclinical hypothyroidism Type 2 diabetes mellitus with complication UTI (urinary tract infection) Vision problem Visit for screening mammogram Surgical History History of appendectomy History of breast surgery History of section History of coronary artery stent placement History of laparoscopic cholecystectomy History of oral surgery History of tubal ligation S/P appendectomy (03/07/21) Retro-rectus ventral hernia repair with mesh, open appendectomy, TAP block by surgeon Clarence Kohli MD S/P repair of ventral hernia (03/07/21) Retro-rectus ventral hernia repair with mesh, open appendectomy, TAP block by surgeon Family History Father Cardiovascular disease Sister Breast cancer Other No pertinent family history Social History Smoking Status: Current every day smoker Tobacco Type: Cigarettes Age Started Using Tobacco: 13; packs per day: 0.5; Second Hand Exposure: No; Do You Dip or Chew Tobacco: No; Tobacco Cessation Education Requested by Patient: No Hx Alcohol Use: No Hx Substance Use: No Preferred Language: Luxembourger Communication Ability: Effective Pharmacy Stock Clerk Required: No Beliefs That Will Affect Care: None marital status: / Current Living Situation: Significant Other Other Information That Helps Us Care for You: No Feels Safe at Home: Yes Safety Concerns: Feels Safe At This Time Childhood Exposure to Second-Hand Smoke: No Seatbelt Use: never Sunscreen Use: No Assistive Devices: None Review of Systems A total of 10 systems reviewed and were otherwise negative All systems reviewed & are unremarkable except as noted in HPI & below Physical Exam Vital Signs Vital Signs - 24 hr 03/15/22 16:30 03/15/22 16:55 03/15/22 17:00 Temperature 36.5 C Temperature Source Temporal Artery Scan Pulse Rate 69 65 67 Pulse Rate from SpO2 Sensor 65 67 Respiratory Rate 16 21 21 Blood Pressure 90/57 L Blood Pressure Mean 68 Pulse Oximetry 95 96 96 Oxygen Delivery Method Room Air Sepsis Recent Fever Within 48 Hours No Sepsis New/Unexplained Change in Mental Status N/A Sepsis Action Taken by Nursing No Action Required 03/15/22 17:30 03/15/22 18:00 03/15/22 18:04 Temperature Temperature Source Pulse Rate 66 65 66 Pulse Rate from SpO2 Sensor 66 65 65 Respiratory Rate 25 H 21 24 Blood Pressure 117/80 120/71 Blood Pressure Mean 92 87 Pulse Oximetry 95 96 95 Oxygen Delivery Method Sepsis Recent Fever Within 48 Hours Sepsis New/Unexplained Change in Mental Status Sepsis Action Taken by Nursing 03/15/22 18:26 03/15/22 18:56 03/15/22 18:57 Temperature Temperature Source Pulse Rate 68 68 Pulse Rate from SpO2 Sensor 68 68 Respiratory Rate 27 H 22 Blood Pressure 127/71 Blood Pressure Mean 89 Pulse Oximetry 97 96 Oxygen Delivery Method Sepsis Recent Fever Within 48 Hours Sepsis New/Unexplained Change in Mental Status Sepsis Action Taken by Nursing 03/15/22 19:00 Temperature Temperature Source Pulse Rate 68 Pulse Rate from SpO2 Sensor 68 Respiratory Rate 19 Blood Pressure 115/55 L Blood Pressure Mean 75 Pulse Oximetry 97 Oxygen Delivery Method Sepsis Recent Fever Within 48 Hours Sepsis New/Unexplained Change in Mental Status Sepsis Action Taken by Nursing GENERAL: alert, well appearing, well nourished, no distress, non-toxic, BMI>42 EYE EXAM: normal conjunctiva, PERRL and EOM's grossly intact OROPHARYNX: no exudate, no erythema, lips, buccal mucosa, and tongue normal and mucous membranes are moist, edentulous NECK: supple, no nuchal rigidity, no adenopathy, non-tender LUNGS: Clear to auscultation. Normal chest wall mechanics, no w/r/r HEART: no murmurs, S1 normal and S2 normal ABDOMEN: abdomen soft, non-tender, normo-active bowel sounds, no masses, no rebound or guarding. BACK: Back is symmetrical on inspection and there is no deformity, no midline tenderness, no CVA tenderness. SKIN: no rashes and no bruising UPPER EXTREMITIES: upper extremities are grossly normal. FROM, nml pulses b/l. LOWER EXTREMITIES: 2+ b/l pitting edema. FROM, nml pulses b/l. Mild erythema noted to dorsal aspect of right foot. NEURO EXAM: Normal sensorium, cranial nerves II-XII grossly intact, normal speech, no gross weakness of arms, no gross weakness of legs. Gross sensation intact. Course Administered Medications Atorvastatin Calcium (Atorvastatin 40 Mg Tab) 40 mg PO HS BARBARA Stop: 04/14/22 21:36 Last Admin: 03/15/22 22:45 Dose: 40 mg Documented by: [id number] Diphenhydramine HCl (Diphenhydramine Capsule 25 Mg Cap) 25 mg PO HS BARBARA Stop: 04/14/22 21:36 Last Admin: 03/15/22 22:44 Dose: 25 mg Documented by: [id number] Insulin Glargine (Insulin Glargine Solostar 100 Units/Ml 3 Ml Pen) 45 units SQ QPM BARBARA Stop: 04/14/22 21:36 Last Admin: 03/15/22 22:46 Dose: 45 units Documented by: [id number] Cosigned by: [id number] Melatonin (Melatonin 3 Mg Tab) 3 mg PO HS BARBARA Stop: 04/14/22 21:36 Last Admin: 03/15/22 22:45 Dose: 3 mg Documented by: [id number] Pregabalin (Pregabalin 25 Mg Cap) 25 mg PO TID BARBARA Stop: 04/14/22 21:36 Last Admin: 03/15/22 22:48 Dose: 25 mg Documented by: [id number] Ranolazine (Ranolazine 500 Mg Er Tab) 500 mg PO BID BARBARA Stop: 04/14/22 21:36 Last Admin: 03/15/22 22:43 Dose: 500 mg Documented by: [id number] Discontinued Medications Furosemide (Furosemide 40 Mg/4 Ml Vial) 80 mg IV ONE STA Stop: 03/15/22 19:43 Last Admin: 03/15/22 20:20 Dose: 80 mg Documented by: [id number] Medical Decision Making Differential Diagnosis Differential diagnoses includes but is not limited to pneumonia, bronchitis, COPD/Asthma exacerbation, pneumothorax, pulmonary embolism, congestive heart failure, acute coronary syndrome Medical Records Attestation: I reviewed the patient's medical records. Home Medications Current Medication List: was personally reviewed by me Laboratory Data Attestation: I reviewed the patient's lab results. Result diagrams: 03/15/22 16:48 03/15/22 16:48 Lab Results 03/15/22 03/15/22 03/15/22 Range/Units 16:48 16:48 16:48 WBC 11.82 H (4.8-10.8) K/uL RBC 4.15 L (4.2-5.4) M/uL Hgb 11.7 L (12.0-16.0) g/dL Hct 36.1 L (37-47) % MCV 87.0 (80-100) fL MCH 28.2 (25-34) pg MCHC 32.4 (32-36) g/dL RDW Std Deviation 55.9 H (36.4-46.3) fL RDW Coeff of George 17.6 H (11.5-14.5) % Plt Count 256 (130-400) K/uL MPV 9.8 (7.4-10.4) fL Immature Gran % (Auto) 0.8 % Neut % (Auto) 77.7 % Lymph % (Auto) 17.8 % Hanson % (Auto) 3.3 % Eos % (Auto) 0.1 % Baso % (Auto) 0.3 % Neut # (Auto) 9.20 H (1.4-6.5) K/uL Lymph # (Auto) 2.10 (1.2-3.4) K/uL Hanson # (Auto) 0.39 (0.11-0.59) K/uL Eos # (Auto) 0.01 (0-0.5) K/uL Baso # (Auto) 0.03 (0-0.2) K/uL Immature Gran # (Auto) 0.09 H (0.00-0.02) K/uL PT 10.9 (9.0-12.0) Seconds INR 1.0 (0.9-1.1) Sodium 131 L (136-145) mmol/L Potassium 4.4 (3.5-5.1) mmol/L Chloride 92 L (98-107) mmol/L Carbon Dioxide 29 (21-32) mmol/L Anion Gap 10 (3-11) BUN 45 H (6-23) mg/dl Creatinine 2.17 H (0.6-1.2) mg/dl Est Cr Clr Drug Dosing 35.7 ml/min Est GFR ( Amer) 28.6 ml/min Est GFR (Non-Af Amer) 24.7 ml/min BUN/Creatinine Ratio 20.7 H (10-20) Glucose 262 H (70-99(Fasting)) mg/dl Calcium 9.5 (8.5-10.1) mg/dl Magnesium 1.7 (1.7-2.4) mg/dl Total Bilirubin 1.2 H (0.2-1.0) mg/dl AST 19 (13-39) U/L ALT 20 (7-52) U/L Alkaline Phosphatase 241 H (34-104) U/L Troponin I High Sens 19.7 H (0-14) pg/ml B-Natriuretic Peptide (0-100) pg/ml Total Protein 7.3 (6.0-8.3) gm/dl Albumin 4.0 (3.4-5.0) gm/dl Globulin 3.3 (2.5-4.0) gm/dl Albumin/Globulin Ratio 1.2 (0.9-2) SARS-CoV-2, RNA, NAAT (NEGATIVE) 03/15/22 03/15/22 Range/Units 16:48 18:57 WBC (4.8-10.8) K/uL RBC (4.2-5.4) M/uL Hgb (12.0-16.0) g/dL Hct (37-47) % MCV (80-100) fL MCH (25-34) pg MCHC (32-36) g/dL RDW Std Deviation (36.4-46.3) fL RDW Coeff of George (11.5-14.5) % Plt Count (130-400) K/uL MPV (7.4-10.4) fL Immature Gran % (Auto) % Neut % (Auto) % Lymph % (Auto) % Hanson % (Auto) % Eos % (Auto) % Baso % (Auto) % Neut # (Auto) (1.4-6.5) K/uL Lymph # (Auto) (1.2-3.4) K/uL Hanson # (Auto) (0.11-0.59) K/uL Eos # (Auto) (0-0.5) K/uL Baso # (Auto) (0-0.2) K/uL Immature Gran # (Auto) (0.00-0.02) K/uL PT (9.0-12.0) Seconds INR (0.9-1.1) Sodium (136-145) mmol/L Potassium (3.5-5.1) mmol/L Chloride (98-107) mmol/L Carbon Dioxide (21-32) mmol/L Anion Gap (3-11) BUN (6-23) mg/dl Creatinine (0.6-1.2) mg/dl Est Cr Clr Drug Dosing ml/min Est GFR ( Amer) ml/min Est GFR (Non-Af Amer) ml/min BUN/Creatinine Ratio (10-20) Glucose (70-99(Fasting)) mg/dl Calcium (8.5-10.1) mg/dl Magnesium (1.7-2.4) mg/dl Total Bilirubin (0.2-1.0) mg/dl AST (13-39) U/L ALT (7-52) U/L Alkaline Phosphatase (34-104) U/L Troponin I High Sens (0-14) pg/ml B-Natriuretic Peptide 194 H (0-100) pg/ml Total Protein (6.0-8.3) gm/dl Albumin (3.4-5.0) gm/dl Globulin (2.5-4.0) gm/dl Albumin/Globulin Ratio (0.9-2) SARS-CoV-2, RNA, NAAT NEGATIVE (NEGATIVE) Imaging Data Radiologist's Impression: Chest X-Ray 03/15/22 17:03 XR chest 1V portable CLINICAL HISTORY: sob/cp TECHNIQUE: Single frontal radiograph of the chest was obtained. Comparison: Comparison is made to chest radiograph and 2819 FINDINGS: Pacemaker defibrillator is seen. Cardiomegaly is noted. Prominence and cephalization of the vasculature is seen. No evidence of pleural effusion or pneumothorax. IMPRESSION: Cardiomegaly with mild pulmonary edema. No evidence of pneumonia. ACT 112: Negative or not required by law. Electronically signed by: Kyler Lopez M.D. 03/15/2022 5:30 PM ECG Data Attestation: I personally reviewed and interpreted this ECG as follows: Indication: + SOB/dyspnea Rate (beats per minute): 67 Rhythm: + normal sinus ECG Intervals/blocks: + Normal QRS and + Normal QT ECG [place]: + Normal ECG ST segments: + Normal ST segments MDM Narrative An order was placed for continuous cardiac monitoring. The monitor shows a rate of _70__ with _normal sinus__ rhythm. This is a 56-year-old female presents due to concern for shortness of breath and lower extremity edema. Patient with 2 recent admissions to [facility] in the last 8 to 10 days. Patient states she is unable to lay flat due to diff iculty breathing, has increased breathing with ambulation, feels her legs are continuing to swell despite diuretics, and has had intermittent chest pain. Patient does have significant cardiac history with an ejection fraction of 45%. Patient is still smoking. Patient denies any fevers. Labs drawn and sent and were able to obtain additional records from [facility] with assistance of case management. Labs appear similar compared to prior with a mild elevation of creatinine compared to yesterday. All results discussed with patient at bedside. She does not feel comfortable returning home at this time. Given complicated history and risk, case discussed with hospitalist for additional evaluation and management. Impression & Plan Dyspnea, COPD (chronic obstructive pulmonary disease), Bilateral edema of lower extremity, Chest pain, Tobacco abuse Discharge Plan Visit Data Chief Complaint: Swelling/Edema to Extremity Stated Complaint: SWELLING IN LEGS, CHF ED Provider: Teodora Mendez Discharge Problem: Dyspnea, COPD (chronic obstructive pulmonary disease), Bilateral edema of lower extremity, Chest pain, Tobacco abuse Patient Disposition: Admitted As Inpatient Discharge Instructions Interventions: ED Discharge Assessment Last Done: 03/15/22 20:23 Discharge Problem: Dyspnea Qualifiers: Dyspnea type: shortness of breath Qualified Code(s): R06.02 - Shortness of breath COPD (chronic obstructive pulmonary disease) Qualifiers: COPD type: unspecified COPD Qualified Code(s): J44.9 - Chronic obstructive pulmonary disease, unspecified Chest pain Qualifiers: Chest pain type: unspecified Qualified Code(s): R07.9 - Chest pain, unspecified
[2022-03-15 17:20] LABS: Basophils # (auto) 0.03 K/uL (0-0.2); Basophils % (auto) 0.3 %; Eosinophils # (auto) 0.01 K/uL (0-0.5); Eosinophils % (auto) 0.1 %; Hematocrit (blood only) 36.1 % (37-47); Hemoglobin 11.7 g/dL (12.0-16.0); Immature Granulocytes # (auto) 0.09 K/uL (0.00-0.02); Immature Granulocytes % (auto) 0.8 %; Lymphocytes % (auto) 17.8 %; Mean Corpuscular Hemoglobin 28.2 pg (25-34); Mean Corpuscular Hgb Conc 32.4 g/dL (32-36); Mean Platelet Volume 9.8 fL (7.4-10.4); Monocytes # (auto) 0.39 K/uL (0.11-0.59); Monocytes % (auto) 3.3 %; Neutrophils % (auto) 77.7 %; Platelet Count 256 K/uL (130-400); RDW Coefficient of Variation 17.6 % (11.5-14.5); RDW Standard Deviation 55.9 fL (36.4-46.3); Red Blood Count 4.15 M/uL (4.2-5.4); White Blood Count 11.82 K/uL (4.8-10.8)
[2022-03-15 17:28] LABS: Prothrombin Time 10.9 Seconds (9.0-12.0)
[2022-03-15 17:32] LABS: Troponin I High Sensitivity 19.7 pg/ml (0-14)
--- NOTE | 2022-03-15 17:32 | XRay Report ---
XR chest 1V portable CLINICAL HISTORY: sob/cp TECHNIQUE: Single frontal radiograph of the chest was obtained. Comparison: Comparison is made to chest radiograph and 2819 FINDINGS: Pacemaker defibrillator is seen. Cardiomegaly is noted. Prominence and cephalization of the vasculatu re is seen. No evidence of pleural effusion or pneumothorax. IMPRESSION: Cardiomegaly with mild pulmonary edema. No evidence of pneumonia. ACT 112: Negative or not required by law. Electronically signed by: Kyler Lopez M.D. 03/15/2022 5:30 PM
[2022-03-15 17:54] LABS: Albumin Globulin Ratio 1.2 (0.9-2); BUN Creatinine Ratio 20.7 (10-20); Bilirubin,Total 1.2 mg/dl (0.2-1.0); Calcium 9.5 mg/dl (8.5-10.1); Creatinine Clr Calc Pharmacy 35.7 ml/min; Est GFR (African American) 28.6 ml/min; Est GFR (Non-African American) 24.7 ml/min; Globulin 3.3 gm/dl (2.5-4.0); Magnesium 1.7 mg/dl (1.7-2.4); Potassium 4.4 mmol/L (3.5-5.1); Total Protein 7.3 gm/dl (6.0-8.3)
--- NOTE | 2022-03-15 19:20 | History & Physical Report ---
Date of Service March 15, 2022 Assessment & Plan (1) Acute on chronic congestive heart failure: Plan: Usually takes torsemide 100mg PO daily and spironolactone (newly started last admission) 25mg PO daily. I think she is still hypervolemic but probably a lot of her lower extremity swelling is venous insufficiency and right sided failure due to obesity hypoventilation and COPD which may not respond so well to diuretics. SCDs and YUMIKO hose to help with venous insufficiency. US venous doppler to r/o DVT given possible history of this. Recent TTE at [facility] LVEF 46%, moderate mitral and tricuspid regurgitation. Switch to Lasix 80mg IV BID and spironolactone 25mg PO daily while here. Heart healthy, low Na, fluid restricted diet 1500ml. Strict I&Os. Daily weights. Consult [facility] cardiology. (2) Hypothyroidism: Plan: TSH 9.624 in January - increased levothyroxine from 127 -> 150 mcg PO daily at that time. Continue levothyroxine 150mcg PO daily. Repeat TSH with AM labs. (3) Type 2 diabetes mellitus with complication: Plan: Hemoglobin A1C 8.5. Patient is unsure what she takes at home as she reports it keeps on changing. Continue glipizide although I am unclear if this is truly doing anything given her high insulin requirements Will go by recently discharged dose from [place] since she is likely to have a similar diet in hospital here as at [place] [facility]: Lantus 45 units SQ HS Novolog based on basal requirement: (4) CAD (coronary artery disease): Plan: Continue ASA 81mg PO daily, metoprolol succinate 100mg PO daily, (5) COPD (chronic obstructive pulmonary disease): Plan: Continue Trelegy Ellipta or hospital formulary equivalent. Patient reports only taking this PRN and advised she should be taking it regularly. (6) Morbid obesity: (7) Current smoker: Plan: Down to 0.5 packs/day - counselled regarding quitting smoking. Patient declined nicotine patch. (8) Ischemic cardiomyopathy: Plan: Continue metoprolol succinate, will hold lisinopril given current renal function but likely can restart as hypervolemic status improves. Plan: VTE Prophylaxis - heparin 7500 units q8h as long as US venous doppler negative for DVT Diet - T2DM, heart healthy, low Na, fluid restrict 1500ml Disposition - admit to med/tele Admission and Anticipated Discharge Date Admission Date: March 15, 2022 History of Present Illness Chief Complaint: Leg swelling Primary Care Provider: Carlos Guardado MD Isabel Starks is a 56 year old female with known diastolic heart failure who presents to the ER after discharging herself against medical advice earlier this morning from [facility] for leg swelling and acute CHF exacerbation. The patient was recently hospitalized from March 03 - March 05 and requested discharge otherwise she would leave against medical advice. She was readmitted (although unclear on date) and discharged on March 13 again for CHF exacerbation with improvement with Lasix 8mg/hr IV drip. She was concerned when she went home and took her medications that her legs were still swollen therefore returned to the ER and was readmitted on March 14 (yesterday). She discharged herself against medical advice earlier today as she became fed up that she was waiting to see cardiology. She currently feels she is back to where she was when she was originally admitted to [facility] and does not think she has had any improvement with the diuretics. Her main concern is the leg swelling which is bilateral but worse on left side. She denies having a recent US venous doppler to assess for DVT. She denies any history of DVT or PE although history of PE is noted on EHR. She denies any chest pain. She has chronic shortness of breath which she puts down to her COPD which is no worse than usual - she takes Trelegy Ellipta just intermittently. She continues to smoke 0.5 packs/day (previously on 3 packs/day). Associated orthopnea and PND. She denies any palpitations or claudication. She reports a high salt diet at home and mostly relies on microwave meals. She has a history noted of sleep apnea although reports she was told she doesn't have this if she sleeps in recliner on last sleep study and she does not wear CPAP at home. In the ER, EKG was unremarkable, CXR with mild pulmonary edema. BNP actually improved from prior 194 from 369. Her weight in wheelchair is down from January 115kg to 113kg. Current O2 sats 94% on room air. She was referred to medicine for admission and ongoing management of CHF exacerbation. Allergies Allergy/AdvReac Type Severity Reaction Status Date / Time clopidogrel Allergy Intermediate HIVES Verified 03/15/22 17:36 NSAIDS (Non-Steroidal Allergy Unknown Unknown Verified 03/15/22 17:36 Anti-Inflamma Home Medications Medication Instructions Recorded Confirmed Type aspirin 81 mg tablet,delayed 81 mg PO QAM #90 tab 03/30/19 03/15/22 Rx release melatonin 3 mg tablet 3 mg PO HS #90 tab 03/30/19 03/15/22 Rx nitroglycerin 0.4 mg sublingual 0.4 mg SUBLINGUAL DIRECTED PRN 03/30/19 03/15/22 Rx tablet (Nitrostat) #20 tab insulin aspart U-100 100 unit/mL 37 units SUBCUT TIDM ml 11/22/19 03/15/22 History (3 mL) subcutaneous pen blood sugar diagnostic (OneTouch #500 ea 11/13/20 01/30/22 Rx Ultra Blue Test Strip) febuxostat 40 mg tablet 40 mg PO DAILY PRN tab 12/12/20 03/15/22 History lisinopril 2.5 mg tablet 2.5 mg PO HS #90 tab 06/04/21 03/15/22 Rx digoxin 250 mcg (0.25 mg) tablet See Rx Instructions PO DAILY #30 06/05/21 03/15/22 Rx tab pen needle, diabetic 31 gauge x #100 ea 06/30/21 01/30/22 Rx 5/16" (BD Ultra-Fine Short Pen Needle) albuterol sulfate 2.5 mg INHALATION QID PRN #75 ml 09/24/21 03/15/22 Rx albuterol sulfate 90 mcg/actuation 2 puff INHALATION Q4H PRN #18 gm 09/24/21 03/15/22 Rx aerosol inhaler torsemide 100 mg tablet 100 mg PO DAILY #90 tab 11/04/21 03/15/22 Rx nystatin 100,000 unit/gram topical 1 applic TOPICAL DAILY PRN #60 gm 11/05/21 03/15/22 Rx powder ranolazine 500 mg tablet,extended 500 mg PO BID #180 tab 01/21/22 03/15/22 Rx release,12 hr (Ranexa) levothyroxine 150 mcg tablet 150 mcg PO DAILY #90 tab 02/04/22 03/15/22 Rx atorvastatin 40 mg tablet 40 mg PO HS 03/15/22 03/15/22 History diphenhydramine HCl 25 mg tablet 25 mg PO HS 03/15/22 03/15/22 History fluticasone fur. 100 mcg-umeclid 1 inh INHALATION DAILY 03/15/22 03/15/22 History 62.5 mcg-vilant 25 mcg inhalat.powder (Trelegy Ellipta) glipizide 10 mg tablet, extended 10 mg PO BID 03/15/22 03/15/22 History release 24 hr insulin glargine 100 unit/mL (3 80 unit SUBCUT QPM 03/15/22 03/15/22 History mL) subcutaneous pen (Lantus Solostar U-100 Insulin) metoprolol succinate 100 mg 100 mg PO DAILY 03/15/22 03/15/22 History tablet,extended release 24 hr pregabalin 25 mg capsule 25 mg PO TID 03/15/22 03/15/22 History spironolactone 25 mg tablet 25 mg PO DAILY 03/15/22 03/15/22 History Past Med/Surg History Medical History (Updated 03/16/22 @ 01:30 by Teodora Mendez DO) Abnormal chest CT Acute bronchitis Acute carpal tunnel syndrome of left wrist Acute on chronic systolic heart failure Acute sinusitis Allergic rhinitis Anemia Anxiety Arthritis Bronchitis CAD (coronary artery disease) CHF (congestive heart failure) Chronic anticoagulation Chronic cholecystitis Chronic kidney disease, stage III (moderate) Chronic systolic heart failure CKD stage 3 due to type 2 diabetes mellitus COPD (chronic obstructive pulmonary disease) COPD exacerbation COPD with exacerbation Current smoker Dental decay Diabetes Diabetes Diabetic neuropathy Diarrhea Diastolic congestive heart failure Dyspnea Fatigue Hematuria Herniation of intervertebral disc of cervical region History of blood clots Hypercholesterolemia Hypertension Hypotension Impacted cerumen Implantable cardioverter-defibrillator (ICD) at end of device life This is not a end-of-life I cannot remove this problem to the problem list this point time she decides any ICD due to severe systolic heart failure Influenza A Insomnia Ischemic cardiomyopathy Leukocytosis Maxillary sinusitis Migraine, unspecified, not intractable, without status migrainosus Morbid obesity Morbid obesity LACY (nonalcoholic steatohepatitis) Pneumonia Pulmonary embolism Pulmonary nodules/lesions, multiple Pulpitis Sleep apnea Somatic dysfunction Subclinical hypothyroidism Type 2 diabetes mellitus with complication UTI (urinary tract infection) Vision problem Visit for screening mammogram Surgical History History of appendectomy History of breast surgery History of section History of coronary artery stent placement History of laparoscopic cholecystectomy History of oral surgery History of tubal ligation S/P appendectomy (03/07/21) Retro-rectus ventral hernia repair with mesh, open appendectomy, TAP block by surgeon Clarence Kohli MD S/P repair of ventral hernia (03/07/21) Retro-rectus ventral hernia repair with mesh, open appendectomy, TAP block by surgeon Family History Father Cardiovascular disease Sister Breast cancer Other No pertinent family history Social History Smoking Status: Current every day smoker Tobacco Type: Cigarettes Age Started Using Tobacco: 13; packs per day: 0.5; Second Hand Exposure: No; Do You Dip or Chew Tobacco: No; Tobacco Cessation Education Requested by Patient: No Hx Alcohol Use: No Hx Substance Use: No Preferred Language: German Communication Ability: Effective Lead Sustainability Specialist Required: No Beliefs That Will Affect Care: None marital status: / Current Living Situation: Significant Other Other Information That Helps Us Care for You: No Feels Safe at Home: Yes Safety Concerns: Feels Safe At This Time Childhood Exposure to Second-Hand Smoke: No Seatbelt Use: never Sunscreen Use: No Assistive Devices: None Review of Systems Review of Systems: All systems reviewed & are unremarkable except as noted in HPI & below Physical Exam Constitutional: well developed and + morbidly obese; + not well nourished and no acute distress Eyes: PERRL, conjunctivae normal, anicteric sclerae ENMT: external ear and nose normal, oropharynx normal Neck: trachea midline, no thyromegaly Cardiovascular: Rate/Rhythm: regular rate and regular rhythm Heart Sounds: no murmur Vessels: no JVD (unable to visualize due to neck size) Extremities: normal capillary refill, + calf tenderness (b/l) and + pedal edema (3+ b/l LE edema) Gastrointestinal (Abdomen): Inspection/Auscultation: normal bowel sounds Percussion/Palpation: abdomen soft; abdomen nontender, no guarding and abdomen not rigid Musculoskeletal: no cyanosis or clubbing, extremities motor strength 5/5 Skin: no rashes, warm and dry Neurologic: moves all extremities and awake; no focal motor deficits and not confused Psychiatric: A+Ox3, euthymic affect Results & Data Results & Data ([facility]) Vital Signs (Past 12 Hours) Vital Signs Temp Pulse Resp BP Pulse Ox 03/15/22 19:00 68 19 115/55 L 97 03/15/22 18:57 68 22 96 03/15/22 18:56 127/71 03/15/22 18:26 68 27 H 97 03/15/22 18:04 66 24 120/71 95 03/15/22 18:00 65 21 96 03/15/22 17:30 66 25 H 117/80 95 03/15/22 17:00 67 21 96 03/15/22 16:55 65 21 96 03/15/22 16:30 36.5 C 69 16 90/57 L 95 Laboratory Results Abnormal lab results 03/15/22 03/15/22 03/15/22 Range/Units 16:48 16:48 16:48 WBC 11.82 H (4.8-10.8) K/uL RBC 4.15 L (4.2-5.4) M/uL Hgb 11.7 L (12.0-16.0) g/dL Hct 36.1 L (37-47) % RDW Std Deviation 55.9 H (36.4-46.3) fL RDW Coeff of George 17.6 H (11.5-14.5) % Neut # (Auto) 9.20 H (1.4-6.5) K/uL Immature Gran # (Auto) 0.09 H (0.00-0.02) K/uL Sodium 131 L (136-145) mmol/L Chloride 92 L (98-107) mmol/L BUN 45 H (6-23) mg/dl Creatinine 2.17 H (0.6-1.2) mg/dl BUN/Creatinine Ratio 20.7 H (10-20) Glucose 262 H (70-99(Fasting)) mg/dl POC Glucose (70-99) mg/dl Total Bilirubin 1.2 H (0.2-1.0) mg/dl Alkaline Phosphatase 241 H (34-104) U/L Troponin I High Sens 19.7 H (0-14) pg/ml B-Natriuretic Peptide 194 H (0-100) pg/ml 03/15/22 03/15/22 Range/Units 20:42 20:44 WBC (4.8-10.8) K/uL RBC (4.2-5.4) M/uL Hgb (12.0-16.0) g/dL Hct (37-47) % RDW Std Deviation (36.4-46.3) fL RDW Coeff of George (11.5-14.5) % Neut # (Auto) (1.4-6.5) K/uL Immature Gran # (Auto) (0.00-0.02) K/uL Sodium (136-145) mmol/L Chloride (98-107) mmol/L BUN (6-23) mg/dl Creatinine (0.6-1.2) mg/dl BUN/Creatinine Ratio (10-20) Glucose (70-99(Fasting)) mg/dl POC Glucose 344 H* 370 H* (70-99) mg/dl Total Bilirubin (0.2-1.0) mg/dl Alkaline Phosphatase (34-104) U/L Troponin I High Sens (0-14) pg/ml B-Natriuretic Peptide (0-100) pg/ml Diagnostic Findings XR chest 1V portable CLINICAL HISTORY: sob/cp TECHNIQUE: Single frontal radiograph of the chest was obtained. Comparison: Comparison is made to chest radiograph and 2819 FINDINGS: Pacemaker defibrillator is seen. Cardiomegaly is noted. Prominence and cephalization of the vasculature is seen. No evidence of pleural effusion or pneumothorax. IMPRESSION: Cardiomegaly with mild pulmonary edema. No evidence of pneumonia. Medications Administered ER Medications Given: None ECG Indication: SOB/dyspnea Rate (beats per minute): 77 Rhythm: normal sinus Findings: no acute ischemic change Comparison ECG Date: from (Jun 07, 2018) Change: no significant change Code Status & VTE Plan Code Status Full VTE Prophylaxis Plan VTE Prophylaxis will be ordered: Yes PG Care Time/CCT Total # of Minutes Spent Total Time Spent with Patient: Total time spent is greater than 50% in coordination of care (as documented) at patient's floor/unit and/or counseling patient: Coding Level of Care Code 54496 Initial Inpt Care Lvl 3 Diagnoses Acute on chronic congestive heart failure I50.9 Hypothyroidism E03.9 Type 2 diabetes mellitus with complication E11.8 CAD (coronary artery disease) I25.10 COPD (chronic obstructive pulmonary disease) J44.9 Morbid obesity E66.01 Current smoker F17.200 Ischemic cardiomyopathy I25.5
[2022-03-15] MEDS ORDERED: FUROSEMIDE 40 MG/4 ML VIAL IV STA (19:42)
[2022-03-15] MEDS ORDERED: diphenhydrAMINE Capsule 25 MG CAP PO SCH (21:37)
[2022-03-15] MEDS ORDERED: GLUCAGON FOR INJ 1 MG VIAL SQ PRN (21:37)
[2022-03-15] MEDS ORDERED: DEXTROSE 50% 50 ML SYRINGE IV PRN (21:37)
[2022-03-15] MEDS ORDERED: CARBOHYDRATES FOR HYPOGLYCEMIA PO PRN (21:37)
[2022-03-15] MEDS ORDERED: ATORVASTATIN 40 MG TAB PO SCH (21:37)
[2022-03-15] MEDS ORDERED: ACETAMINOPHEN 325 MG TAB PO PRN (21:37)
[2022-03-15] MEDS ORDERED: ONDANSETRON INJ 2 MG/ML 2 ML VIAL IV PRN (21:37)
[2022-03-15] MEDS ORDERED: GLUCOSE 10 TABS/TUBE PO PRN (21:37)
[2022-03-15] MEDS ORDERED: ALBUTEROL HFA 8 GM INHALER INH PRN (21:37)
[2022-03-15] MEDS ORDERED: NYSTATIN POWDER 15GM BTL EXT PRN (21:37)
[2022-03-15] MEDS ORDERED: MELATONIN 3 MG TAB PO SCH (21:37)
[2022-03-15] MEDS ORDERED: INSULIN GLARGINE SOLOSTAR 100 UNITS/ML 3 ML PEN SQ SCH (21:37)
[2022-03-15] MEDS ORDERED: POLYETHYLENE (MIRALAX) 17 GM PACK PO PRN (21:37)
[2022-03-15] MEDS ORDERED: GLUCOSE 40% GEL 15 GM TUBE PO PRN (21:37)
[2022-03-15] MEDS: RANOLAZINE 500 MG ER TAB PO SCH (22:43)
[2022-03-15] MEDS: PREGABALIN 25 MG CAP PO SCH (22:48)
[2022-03-16] MEDS: HEPARIN SOD 5,000 UNIT/0.5 ML VIAL SQ SCH ×2 (04:50→13:31)
[2022-03-16] MEDS ORDERED: LEVOTHYROXINE SODIUM 150 MCG TABLET PO SCH (06:30)
--- NOTE | 2022-03-16 06:45 | Ultrasound Report ---
BILATERAL LOWER EXTREMITY VENOUS DOPPLER HISTORY: Acute pain and swelling of the lower legs bilateral LE swelling and pain COMPARISON STUDY: None. FINDINGS: There is normal compressibility, flow, and augmentation within the bilateral lower extremit y deep venous systems. IMPRESSION: No DVT within the right or left lower extremity. ACT 112: Negative or not required by law. Electronically signed by: Tomy Cai M.D. 03/16/2022 6:43 AM
[2022-03-16 07:01] LABS: Basophils # (auto) 0.02 K/uL (0-0.2); Basophils % (auto) 0.2 %; Eosinophils # (auto) 0.01 K/uL (0-0.5); Eosinophils % (auto) 0.1 %; Immature Granulocytes # (auto) 0.08 K/uL (0.00-0.02); Immature Granulocytes % (auto) 0.8 %; Lymphocytes # (auto) 1.99 K/uL (1.2-3.4); Lymphocytes % (auto) 20.8 %; Mean Corpuscular Hemoglobin 28.4 pg (25-34); Mean Corpuscular Hgb Conc 32.4 g/dL (32-36); Mean Corpuscular Volume 87.6 fL (80-100); Monocytes # (auto) 0.39 K/uL (0.11-0.59); Monocytes % (auto) 4.1 %; Neutrophils # (auto) 7.07 K/uL (1.4-6.5); Platelet Count 234 K/uL (130-400); RDW Coefficient of Variation 17.9 % (11.5-14.5); Red Blood Count 3.88 M/uL (4.2-5.4); White Blood Count 9.56 K/uL (4.8-10.8)
[2022-03-16 07:09] LABS: Potassium 3.8 mmol/L (3.5-5.1)
[2022-03-16 07:10] LABS: BUN Creatinine Ratio 23.3 (10-20); Calcium 9.3 mg/dl (8.5-10.1); Creatinine Clr Calc Pharmacy 36.9 ml/min; Est GFR (African American) 29.7 ml/min; Est GFR (Non-African American) 25.7 ml/min
[2022-03-16 07:22] LABS: Thyroid Stimulating Hormone 14.538 uIu/ml (0.300-4.500)
[2022-03-16 07:56] LABS: T4 Free Thyroxine 1.25 ng/dl (0.61-1.60)
[2022-03-16] MEDS ORDERED: glipiZIDE ER 2.5 MG TABCR PO SCH (08:00)
--- NOTE | 2022-03-16 08:18 | Electrocardiogram Report ---
Test Reason : Blood Pressure : / mmHG Vent. Rate : 067 BPM Atrial Rate : 067 BPM P-R Int : 138 ms QRS Dur : 096 ms QT Int : 430 ms P-R-T Axes : 037 060 073 degrees QTc Int : 454 ms Normal sinus rhythm Left atrial enlargement Borderline ECG When compared with ECG of 17-OCT-2018 17:53, No significant change was found Confirmed by Dewayne Robin ([id number]) on 03/16/2022 8:17:53 AM Referred By: REFERRED SELF Confirmed By:Dewayne Robin
[2022-03-16] MEDS: RANOLAZINE 500 MG ER TAB PO SCH (08:35)
[2022-03-16] MEDS: INSULIN ASPART PER UNIT SC SCH ×2 (08:36→12:40)
[2022-03-16] MEDS: PREGABALIN 25 MG CAP PO SCH ×2 (08:41→13:31)
[2022-03-16] MEDS ORDERED: UMECLIDINIUM/VILANTEROL 62.5/25MCG 7 PUFFS/INHALER INH SCH (09:00)
[2022-03-16] MEDS ORDERED: SPIRONOLACTONE 25 MG TAB PO SCH (09:00)
[2022-03-16] MEDS ORDERED: ASPIRIN 81 MG ECTAB PO SCH (09:00)
[2022-03-16] MEDS ORDERED: FLUTICASONE FUROATE 100MCG 14 PUFFS/INHALER INH SCH (09:00)
[2022-03-16] MEDS ORDERED: METOPROLOL SUCC 50MG EXT REL TAB PO SCH (09:00)
[2022-03-16] MEDS ORDERED: FUROSEMIDE 80 MG TAB PO SCH (09:00)
--- NOTE | 2022-03-16 10:50 | Cardiology Consultation ---
Date of Consultation March 16, 2022 Assessment & Plan (1) COPD (chronic obstructive pulmonary disease): (2) CKD (chronic kidney disease) stage 3, GFR 30-59 ml/min: (3) Ischemic cardiomyopathy: (4) COR (chronic cor pulmonale): (5) Tobacco abuse: (6) Obesity: (7) Edema: (8) Biventricular automatic implantable cardioverter defibrillator in situ: I had a long discussion with the patient. Due to her biventricular failure especially on the right side from pulmonary hypertension she will most likely never be totally free of lower extremity edema. She needs preload on her heart and if she is over diuresed she will drop her blood pressure. The best we can do this is adequate control of her heart failure and lower extremity edema with diuretics. Unfortunately she continues to smoke which is detrimental to her health. She has a follow-up appointment on 03/18 with [place] [facility]. If she is discharged from the hospital I highly recommend that she keep that appointment. Otherwise I agree with her current medical regimen. I do not believe any additional inpatient testing is indicated. History of Present Illness Attending Physician: Mau Smiley MD History of Present Illness This is a 56-year-old female with a history as outlined below. She has morbid obesity, sleep apnea, cigarette smoking with pulmonary hypertension resulting in cor pulmonale. She also has an ischemic cardiomyopathy with a previous anterior wall myocardial infarction due to in-stent thrombosis. The patient has a tendency to leave the hospital AMA. She has had several ER and hospital admissions in [place] this year. She was just seen in the emergency department at [facility] yesterday. She states that the swelling in her legs has not improved despite her hospital admissions and changing medications. Not really any more short of breath than usual. No chest pain. No dizziness or lightheadedness. Past medical history: Impression 1. CAD with multiple previous anterior wall myocardial infarctions secondary to in-stent thrombosis 2. Severe ischemic cardiomyopathy s/p single chamber ICD LV EF 25% 12/22/2012. Upgrade to dual chamber ICD 07/21/2021. Atrial lead added because of chronic sinus bradycardia 3. Chronic systolic CHF NYHA class 3 status 4. RAJINDER on CPAP but not consistent with use 5. Morbid obesity 6. Hypothyroidism on synthroid replacement 7. CKD stage III 8. Dyslipidemia 9. Tobacco abuse 1/2 PPD 10. Severe pulmonary hypertension likely multifactorial from left heart disease, COPD, untreated obstructive sleep apnea, morbid obesity Allergies Allergy/AdvReac Type Severity Reaction Status Date / Time clopidogrel Allergy Intermediate HIVES Verified 03/15/22 17:36 NSAIDS (Non-Steroidal Allergy Unknown Unknown Verified 03/15/22 17:36 Anti-Inflamma Home Medications Medication Instructions Recorded Confirmed Type aspirin 81 mg tablet,delayed 81 mg PO QAM #90 tab 03/30/19 03/15/22 Rx release melatonin 3 mg tablet 3 mg PO HS #90 tab 03/30/19 03/15/22 Rx nitroglycerin 0.4 mg sublingual 0.4 mg SUBLINGUAL DIRECTED PRN 03/30/19 03/15/22 Rx tablet (Nitrostat) #20 tab insulin aspart U-100 100 unit/mL 37 units SUBCUT TIDM ml 11/22/19 03/15/22 History (3 mL) subcutaneous pen blood sugar diagnostic (OneTouch #500 ea 11/13/20 01/30/22 Rx Ultra Blue Test Strip) febuxostat 40 mg tablet 40 mg PO DAILY PRN tab 12/12/20 03/15/22 History lisinopril 2.5 mg tablet 2.5 mg PO HS #90 tab 06/04/21 03/15/22 Rx digoxin 250 mcg (0.25 mg) tablet See Rx Instructions PO DAILY #30 06/05/21 03/15/22 Rx tab pen needle, diabetic 31 gauge x #100 ea 06/30/21 01/30/22 Rx 5/16" (BD Ultra-Fine Short Pen Needle) albuterol sulfate 2.5 mg INHALATION QID PRN #75 ml 09/24/21 03/15/22 Rx albuterol sulfate 90 mcg/actuation 2 puff INHALATION Q4H PRN #18 gm 09/24/21 03/15/22 Rx aerosol inhaler torsemide 100 mg tablet 100 mg PO DAILY #90 tab 11/04/21 03/15/22 Rx nystatin 100,000 unit/gram topical 1 applic TOPICAL DAILY PRN #60 gm 11/05/21 03/15/22 Rx powder ranolazine 500 mg tablet,extended 500 mg PO BID #180 tab 01/21/22 03/15/22 Rx release,12 hr (Ranexa) levothyroxine 150 mcg tablet 150 mcg PO DAILY #90 tab 02/04/22 03/15/22 Rx atorvastatin 40 mg tablet 40 mg PO HS 03/15/22 03/15/22 History diphenhydramine HCl 25 mg tablet 25 mg PO HS 03/15/22 03/15/22 History fluticasone fur. 100 mcg-umeclid 1 inh INHALATION DAILY 03/15/22 03/15/22 History 62.5 mcg-vilant 25 mcg inhalat.powder (Trelegy Ellipta) glipizide 10 mg tablet, extended 10 mg PO BID 03/15/22 03/15/22 History release 24 hr insulin glargine 100 unit/mL (3 80 unit SUBCUT QPM 03/15/22 03/15/22 History mL) subcutaneous pen (Lantus Solostar U-100 Insulin) metoprolol succinate 100 mg 100 mg PO DAILY 03/15/22 03/15/22 History tablet,extended release 24 hr pregabalin 25 mg capsule 25 mg PO TID 03/15/22 03/15/22 History spironolactone 25 mg tablet 25 mg PO DAILY 03/15/22 03/15/22 History Patient History Medical History Abnormal chest CT Acute bronchitis Acute carpal tunnel syndrome of left wrist Acute on chronic systolic heart failure Acute sinusitis Allergic rhinitis Anemia Anxiety Arthritis Bronchitis CAD (coronary artery disease) CHF (congestive heart failure) Chronic anticoagulation Chronic cholecystitis Chronic kidney disease, stage III (moderate) Chronic systolic heart failure CKD stage 3 due to type 2 diabetes mellitus COPD (chronic obstructive pulmonary disease) COPD exacerbation COPD with exacerbation Current smoker Dental decay Diabetes Diabetes Diabetic neuropathy Diarrhea Diastolic congestive heart failure Dyspnea Fatigue Hematuria Herniation of intervertebral disc of cervical region History of blood clots Hypercholesterolemia Hypertension Hypotension Impacted cerumen Implantable cardioverter-defibrillator (ICD) at end of device life This is not a end-of-life I cannot remove this problem to the problem list this point time she decides any ICD due to severe systolic heart failure Influenza A Insomnia Ischemic cardiomyopathy Leukocytosis Maxillary sinusitis Migraine, unspecified, not intractable, without status migrainosus Morbid obesity Morbid obesity LACY (nonalcoholic steatohepatitis) Pneumonia Pulmonary embolism Pulmonary nodules/lesions, multiple Pulpitis Sleep apnea Somatic dysfunction Subclinical hypothyroidism Type 2 diabetes mellitus with complication UTI (urinary tract infection) Vision problem Visit for screening mammogram Surgical History History of appendectomy History of breast surgery History of section History of coronary artery stent placement History of laparoscopic cholecystectomy History of oral surgery History of tubal ligation S/P appendectomy (03/07/21) Retro-rectus ventral hernia repair with mesh, open appendectomy, TAP block by surgeon Clarence Kohli MD S/P repair of ventral hernia (03/07/21) Retro-rectus ventral hernia repair with mesh, open appendectomy, TAP block by surgeon Family History Father Cardiovascular disease Sister Breast cancer Other No pertinent family history Social History Smoking Status: Current every day smoker Tobacco Type: Cigarettes Age Started Using Tobacco: 13; packs per day: 0.5; Second Hand Exposure: No; Do You Dip or Chew Tobacco: No; Tobacco Cessation Education Requested by Patient: No Hx Alcohol Use: No Hx Substance Use: No Preferred Language: Pakistani Communication Ability: Effective Bundle Collector Required: No Beliefs That Will Affect Care: None marital status: / Current Living Situation: Significant Other Other Information That Helps Us Care for You: No Feels Safe at Home: Yes Safety Concerns: Feels Safe At This Time Childhood Exposure to Second-Hand Smoke: No Seatbelt Use: never Sunscreen Use: No Assistive Devices: None Review of Systems Review of Systems: Review of Systems: See HPI for pertinent positives. All other 10 point review of systems are negative. Physical Exam Physical Exam: General: no acute distress and stated age Head: normocephalic, no masses, lesions, tenderness or abnormalities Eyes: conjunctiva are pink and non-injected, sclera clear Neck: supple, no adenopathy, no bruits, normal jugular venous pulse, no hepatojugular reflux Chest: normal shape and normal respiratory effort Lungs: clear to auscultation and percussion Cardiac Exam: - regular rate & rhythm, no murmurs gallops or rubs - normal S1, normal S2 Pulses: 2(+) throughout Abdomen: abdomen soft, non-tender, no abnormal masses and no hepatosplenomegaly Musculoskeletal: no gait disturbance, no joint inflammation, no deforming arthritis Extremities: Chronic appearing lower extremity edema Neuro: grossly normal exam Results & Data ([facility]) Vital Signs (Past 12 Hours) Vital Signs Temp Pulse Pulse Pulse Resp BP Pulse Ox 03/16/22 08:24 36.6 C 62 19 105/71 94 03/16/22 04:49 36.7 C 67 18 107/69 92 03/15/22 23:45 67 03/15/22 23:28 36.6 C 63 20 112/72 92 03/15/22 23:16 36.9 C 84 18 159/70 H 91 Laboratory Results Laboratory Results - last 24 hr 03/15/22 03/15/22 03/15/22 16:48 16:48 16:48 WBC 11.82 H RBC 4.15 L Hgb 11.7 L Hct 36.1 L MCV 87.0 MCH 28.2 MCHC 32.4 RDW Std Deviation 55.9 H RDW Coeff of George 17.6 H Plt Count 256 MPV 9.8 Immature Gran % (Auto) 0.8 Neut % (Auto) 77.7 Lymph % (Auto) 17.8 [place] % (Auto) 3.3 Eos % (Auto) 0.1 Baso % (Auto) 0.3 Neut # (Auto) 9.20 H Lymph # (Auto) 2.10 [place] # (Auto) 0.39 Eos # (Auto) 0.01 Baso # (Auto) 0.03 Immature Gran # (Auto) 0.09 H PT 10.9 INR 1.0 Sodium 131 L Potassium 4.4 Chloride 92 L Carbon Dioxide 29 Anion Gap 10 BUN 45 H Creatinine 2.17 H Est Cr Clr Drug Dosing 35.7 Est GFR ( Amer) 28.6 Est GFR (Non-Af Amer) 24.7 BUN/Creatinine Ratio 20.7 H Glucose 262 H POC Glucose Calcium 9.5 Magnesium 1.7 Total Bilirubin 1.2 H AST 19 ALT 20 Alkaline Phosphatase 241 H Troponin I High Sens 19.7 H B-Natriuretic Peptide Total Protein 7.3 Albumin 4.0 Globulin 3.3 Albumin/Globulin Ratio 1.2 TSH Free T4 SARS-CoV-2, RNA, NAAT 03/15/22 03/15/22 03/15/22 16:48 18:57 20:42 WBC RBC Hgb Hct MCV MCH MCHC RDW Std Deviation RDW Coeff of George Plt Count MPV Immature Gran % (Auto) Neut % (Auto) Lymph % (Auto) [place] % (Auto) Eos % (Auto) Baso % (Auto) Neut # (Auto) Lymph # (Auto) [place] # (Auto) Eos # (Auto) Baso # (Auto) Immature Gran # (Auto) PT INR Sodium Potassium Chloride Carbon Dioxide Anion Gap BUN Creatinine Est Cr Clr Drug Dosing Est GFR ( Amer) Est GFR (Non-Af Amer) BUN/Creatinine Ratio Glucose POC Glucose 344 H* Calcium Magnesium Total Bilirubin AST ALT Alkaline Phosphatase Troponin I High Sens B-Natriuretic Peptide 194 H Total Protein Albumin Globulin Albumin/Globulin Ratio TSH Free T4 SARS-CoV-2, RNA, NAAT NEGATIVE 03/15/22 03/16/22 03/16/22 20:44 05:44 05:44 WBC 9.56 RBC 3.88 L Hgb 11.0 L Hct 34.0 L MCV 87.6 MCH 28.4 MCHC 32.4 RDW Std Deviation 57.0 H RDW Coeff of George 17.9 H Plt Count 234 MPV 10.0 Immature Gran % (Auto) 0.8 Neut % (Auto) 74.0 Lymph % (Auto) 20.8 [place] % (Auto) 4.1 Eos % (Auto) 0.1 Baso % (Auto) 0.2 Neut # (Auto) 7.07 H Lymph # (Auto) 1.99 [place] # (Auto) 0.39 Eos # (Auto) 0.01 Baso # (Auto) 0.02 Immature Gran # (Auto) 0.08 H PT INR Sodium 132 L Potassium 3.8 Chloride 92 L Carbon Dioxide 31 Anion Gap 9 BUN 49 H Creatinine 2.10 H Est Cr Clr Drug Dosing 36.9 Est GFR ( Amer) 29.7 Est GFR (Non-Af Amer) 25.7 BUN/Creatinine Ratio 23.3 H Glucose 272 H POC Glucose 370 H* Calcium 9.3 Magnesium Total Bilirubin AST ALT Alkaline Phosphatase Troponin I High Sens B-Natriuretic Peptide Total Protein Albumin Globulin Albumin/Globulin Ratio TSH Free T4 SARS-CoV-2, RNA, NAAT 03/16/22 03/16/22 03/16/22 05:44 07:29 07:30 WBC RBC Hgb Hct MCV MCH MCHC RDW Std Deviation RDW Coeff of George Plt Count MPV Immature Gran % (Auto) Neut % (Auto) Lymph % (Auto) [place] % (Auto) Eos % (Auto) Baso % (Auto) Neut # (Auto) Lymph # (Auto) [place] # (Auto) Eos # (Auto) Baso # (Auto) Immature Gran # (Auto) PT INR Sodium Potassium Chloride Carbon Dioxide Anion Gap BUN Creatinine Est Cr Clr Drug Dosing Est GFR ( Amer) Est GFR (Non-Af Amer) BUN/Creatinine Ratio Glucose POC Glucose 312 H* 290 H Calcium Magnesium Total Bilirubin AST ALT Alkaline Phosphatase Troponin I High Sens B-Natriuretic Peptide Total Protein Albumin Globulin Albumin/Globulin Ratio TSH 14.538 H Free T4 1.25 SARS-CoV-2, RNA, NAAT Medications Administered Current Inpatient Medications Acetaminophen (Acetaminophen 325 Mg Tab) 650 mg PO Q4H PRN PRN Reason: Pain or Fever Stop: 04/14/22 21:36 Albuterol (Albuterol Hfa 8 Gm Inhaler) 2 puffs INH Q4H PRN PRN Reason: Shortness Of Breath Or Wheezin Stop: 04/14/22 21:36 Aspirin (Aspirin 81 Mg Ectab) 81 mg PO [facility] Stop: 04/15/22 08:59 Last Admin: 03/16/22 08:35 Dose: 81 mg Documented by: Atorvastatin Calcium (Atorvastatin 40 Mg Tab) 40 mg PO [facility] Stop: 04/14/22 21:36 Last Admin: 03/15/22 22:45 Dose: 40 mg Documented by: Dextrose (Dextrose 50% 50 Ml Syringe) 25 - 50 ml IV UD PRN; Protocol PRN Reason: Hypoglycemia Protocol Stop: 04/14/22 21:36 Digoxin (Digoxin 0.25 Mg Tab) 0.25 mg PO [id number]@1600 [facility] Stop: 04/15/22 15:59 Digoxin (Digoxin 0.125 Mg Tab) 0.125 mg PO [id number]@1600 [facility] Stop: 04/16/22 15:59 Diphenhydramine HCl (Diphenhydramine Capsule 25 Mg Cap) 25 mg PO [facility] Stop: 04/14/22 21:36 Last Admin: 03/15/22 22:44 Dose: 25 mg Documented by: Fluticasone Furoate (Fluticasone Furoate 100mcg 14 Puffs/Inhaler) 1 puffs INH DAILY [facility] Stop: 04/15/22 08:59 Last Admin: 03/16/22 08:36 Dose: 1 puffs Documented by: Furosemide (Furosemide 80 Mg Tab) 80 mg PO [id number] [facility] Stop: 04/15/22 08:59 Last Admin: 03/16/22 08:35 Dose: 80 mg Documented by: Glipizide (Glipizide Er 2.5 Mg Tabcr) 10 mg PO BIDM [facility] Stop: 04/15/22 07:59 Last Admin: 03/16/22 08:34 Dose: 10 mg Documented by: Glucagon (Glucagon For Inj 1 Mg Vial) 1 mg SQ UD PRN; Protocol PRN Reason: Hypoglycemia Protocol Stop: 04/14/22 21:36 Glucose (Glucose 10 Tabs/Tube) 4 - 8 tabs PO UD PRN; Protocol PRN Reason: Hypoglycemia Protocol Stop: 04/14/22 21:36 Glucose (Glucose 40% Gel 15 Gm Tube) 15 - 30 gm PO UD PRN; Protocol PRN Reason: Hypoglycemia Protocol Stop: 04/14/22 21:36 Heparin Sodium (Porcine) (Heparin Sod 5,000 Unit/0.5 Ml Vial) 7,500 units SQ Q8 [facility] Stop: 04/15/22 05:59 Last Admin: 03/16/22 04:50 Dose: 7,500 units Documented by: Insulin Aspart (Insulin Aspart Per Unit) 0 units SC ACHS [facility] Stop: 04/15/22 07:29 Last Admin: 03/16/22 08:36 Dose: 19 units Documented by: Insulin Glargine (Insulin Glargine Solostar 100 Units/Ml 3 Ml Pen) 45 units SQ QPM [facility] Stop: 04/14/22 21:36 Last Admin: 03/15/22 22:46 Dose: 45 units Documented by: Levothyroxine Sodium (Levothyroxine Sodium 150 Mcg Tablet) 150 mcg PO DAILYBB [facility] Stop: 04/15/22 06:29 Last Admin: 03/16/22 04:51 Dose: 150 mcg Documented by: Melatonin (Melatonin 3 Mg Tab) 3 mg PO HS [facility] Stop: 04/14/22 21:36 Last Admin: 03/15/22 22:45 Dose: 3 mg Documented by: Metoprolol Succinate (Metoprolol Succ 50mg Ext Rel Tab) 100 mg PO DAILY [facility] Stop: 04/15/22 08:59 Last Admin: 03/16/22 08:35 Dose: 100 mg Documented by: Miscellaneous (Carbohydrates For Hypoglycemia ) 15 - 30 gm PO UD PRN PRN Reason: Hypoglycemia Protocol Stop: 04/14/22 21:36 Nystatin (Nystatin Powder 15gm Btl) 1 appln EXT DAILY PRN PRN Reason: rash Stop: 04/14/22 21:36 Ondansetron HCl (Ondansetron Inj 2 Mg/Ml 2 Ml Vial) 4 mg IV Q6H PRN PRN Reason: Nausea Stop: 04/14/22 21:36 Polyethylene Glycol (Polyethylene (Miralax) 17 Gm Pack) 17 gm PO DAILY PRN PRN Reason: Constipation Stop: 04/14/22 21:36 Pregabalin (Pregabalin 25 Mg Cap) 25 mg PO TID [facility] Stop: 04/14/22 21:36 Last Admin: 03/16/22 08:41 Dose: 25 mg Documented by: Ranolazine (Ranolazine 500 Mg Er Tab) 500 mg PO BID [facility] Stop: 04/14/22 21:36 Last Admin: 03/16/22 08:35 Dose: 500 mg Documented by: Spironolactone (Spironolactone 25 Mg Tab) 25 mg PO DAILY [facility] Stop: 04/15/22 08:59 Last Admin: 03/16/22 08:34 Dose: 25 mg Documented by: Umeclidinium/Vilanterol (Umeclidinium/Vilanterol 62.5/25mcg 7 Puffs/Inhaler) 1 puffs INH DAILY [facility] Stop: 04/15/22 08:59 Last Admin: 03/16/22 08:35 Dose: 1 puffs Documented by: (1) COPD (chronic obstructive pulmonary disease) COPD type: unspecified COPD Qualified Code(s): J44.9 - Chronic obstructive pulmonary disease, unspecified
--- NOTE | 2022-03-16 11:43 | Discharge Summary ---
Date of Service March 16, 2022 Admission HPI Per Admitting Provider Isabel Starks is a 56 year old female with known diastolic heart failure who presents to the ER after discharging herself against medical advice earlier this morning from [facility] for leg swelling and acute CHF exacerbation. The patient was recently hospitalized from March 03 - March 05 and requested discharge otherwise she would leave against medical advice. She was readmitted (although unclear on date) and discharged on March 13 again for CHF exacerbation with improvement with Lasix 8mg/hr IV drip. She was concerned when she went home and took her medications that her legs were still swollen there fore returned to the ER and was readmitted on March 14 (yesterday). She discharged herself against medical advice earlier today as she became fed up that she was waiting to see cardiology. She currently feels she is back to where she was when she was originally admitted to [facility] and does not think she has had any improvement with the diuretics. Her main concern is the leg swelling which is bilateral but worse on left side. She denies having a recent US venous doppler to assess for DVT. She denies any history of DVT or PE although history of PE is noted on EHR. She denies any chest pain. She has chronic shortness of breath which she puts down to her COPD which is no worse than usual - she takes Trelegy Ellipta just intermittently. She continues to smoke 0.5 packs/day (previously on 3 packs/day). Associated orthopnea and PND. She denies any palpitations or claudication. She reports a high salt diet at home and mostly relies on microwave meals. She has a history noted of sleep apnea although reports she was told she doesn't have this if she sleeps in recliner on last sleep study and she does not wear CPAP at home. In the ER, EKG was unremarkable, CXR with mild pulmonary edema. BNP actually improved from prior 194 from 369. Her weight in wheelchair is down from January 115kg to 113kg. Current O2 sats 94% on room air. She was referred to medicine for admission and ongoing management of CHF exacerbation. Principal Diagnosis 1. Acute on chronic diastolic chf 2. Elevated TSH Discharge Data Allergies Allergy/AdvReac Type Severity Reaction Status Date / Time clopidogrel Allergy Intermediate HIVES Verified 03/15/22 17:36 NSAIDS (Non-Steroidal Allergy Unknown Unknown Verified 03/15/22 17:36 Anti-Inflamma Consultations 03/15/22 19:29 ED Decision to Admit Stat 03/15/22 23:33 Consult Cardiology Routine Ordered Studies 03/15/22 19:42 US venous doppler LE Stat Hospital Course (1) Acute on chronic congestive heart failure: Usually takes torsemide 100mg PO daily and spironolactone (newly started last admission) 25mg PO daily. I think she is still hypervolemic but probably a lot of her lower extremity swelling is venous insufficiency and right sided failure due to obesity hypoventilation and COPD which may not respond so well to diuretics. SCDs and YUMIKO hose to help with venous insufficiency. US venous doppler to r/o DVT given possible history of this which demonstrated no evidence of DVT Recent TTE at [facility] LVEF 46%, moderate mitral and tricuspid regurgitation. Switched to Lasix 80mg IV BID and spironolactone 25mg PO daily while here. Heart healthy, low Na, fluid restricted diet 1500ml. Strict I&Os-net neg fluid balance of 1100 mL Daily weights. [facility] cardiology consulted, advised d/c on current diuretic regimen and f/u with cardiology as scheduled on 03/18 (2) Hypothyroidism: TSH 9.624 in January - increased levothyroxine from 127 -> 150 mcg PO daily at that time. Continued on levothyroxine 150mcg PO daily. Repeat TSH this AM elevated at 14 with normal FT4, will continue current dose of Levothyroxine, f/u TFTs in 4 weeks (3) Type 2 diabetes mellitus with complication: Hemoglobin A1C 8.5. Patient is unsure what she takes at home as she reports it keeps on changing. Continue glipizide although I am unclear if this is truly doing anything given her high insulin requirements Will go by recently discharged dose from [place] since she is likely to have a similar diet in hospital here as at [facility]: Lantus 45 units given at HS--although apparently she takes 80 units at HS Novolog based on sliding scale ordered Seen today by certified lactation educator, recommended splitting Lantus to 40 units BID and discontinuing Glipizide at home Continue Novolog with meals (4) CAD (coronary artery disease): Continue ASA 81mg PO daily, metoprolol succinate 100mg PO daily, (5) COPD (chronic obstructive pulmonary disease): Continue Trelegy Ellipta or hospital formulary equivalent. Patient reports only taking this PRN and advised she should be taking it regularly. (6) Morbid obesity: Recommend weight loss (7) Current smoker: Down to 0.5 packs/day - counselled regarding quitting smoking. Patient declined nicotine patch. (8) Ischemic cardiomyopathy: Continue metoprolol succinate, will hold lisinopril given current renal function but likely can restart as hypervolemic status improves. At this time, pt notes that her swelling has improved, voices no complaints of cp or dyspnea. She is ready to go home. Cardiology felt that a lot of her edema is chronic and she could follow up as scheduled with cardiology in [place] on 03/18. Patient advised to stop smoking. Follow up with family healthcare provider in 1 week. Plan has been d/w Dr. Smiley who has also seen and evaluated this patient and agreed with aforementioned. Total Time Total Time Spent Total Time Spent (In Minutes): >30 minutes Discharge Plan Discharge Items Patient Disposition: Home - Self-Care Reason For Visit: ACUTE ON CHRONIC CONGESTIVE HEART FAILURE Discharge Diagnosis: Lower extremity swelling due to fluid overload Activity: Resume your previous activity Non-emergency contact: Primary Care Provider and Retail Salesworker Call non-emergency contact if: you have any medication questions and your symptoms worsen Follow-up/Referrals: Carlos Guardado MD [Primary Care Provider] - 03/25/22 9:00 am Diet: Carb Consistent or DM2 and Low Sodium (2gm) Addtl Attending Provider Instructions: You were hospitalized due to too much fluid which was causing increased lower extremity swelling. You were treated with IV Lasix to help take off the excess fluid. With the IV Lasix, you were able to pee off nearly 1.5 liters of fluid. In addition, your repeat thyroid function tests came back elevated. Due to you having had your Levothyroxine recently increased to 150mcg, I would not make any further changes at this time. I would recommend follow up with your family doctor to discuss follow up thyroid function tests in 4 weeks. Due to your high blood sugar levels, you were seen by the certified lactation educator. They recommended changing your Lantus to 40 units twice a day, once in the morning and once a night. STOP taking Glipizide and continue taking the Novolog insulin with meals. Please continue closely monitoring your blood sugar levels. On even days, check your sugar in the morning before eating/drinking and at bedtime. On odd days, check it before meals. Take your glucometer with you to your next follow up with your family doctor. You were seen by cardiology, who advised continuing on current regimen of Torsemide 100mg daily and Spironolactone 25mg once a day. Therefore, no changes have been made to your heart medications. You have an appointment coming up in 2 days at [place] [facility], you have been advised to keep that appointment. In the meantime, be mindful of how much salt you are taking in. You should be limiting ALL salt intake to less than 2grams per day. This includes reading labels of the food you are eating or cooking. Also, it is important to keep your total fluid intake to less than 1.5 liters per day (in a 24 hour period). It is advised that you follow up with your family healthcare provider within [address] of discharge. If you have any questions following your discharge, feel free to contact the nonemergency number listed on your discharge paperwork. In the event of a medical emergency, call 911. Pending Studies at Discharge: No Stand-Alone Forms: My [facility] [employer], Smoking Cessation Medications and DC Order Prescriptions: New insulin glargine [Lantus Solostar U-100 Insulin] 100 unit/mL (3 mL) insulin pen 40 unit subcut BID Qty: 15 RF: 0 (DME) pen needle, diabetic [Pen Needle] 31 gauge x 1/4" needle See Rx Instructions .Route Qty: 100 RF: 0 Continued (DME) OneTouch Ultra Blue Test Strip Strip See Dose Instructions .ROUTE .MEDSUPPLY Qty: 500 RF: 11 digoxin 250 mcg (0.25 mg) tablet See Rx Instructions PO DAILY Qty: 30 RF: 5 (DME) pen needle, diabetic [BD Ultra-Fine Short Pen Needle] 31 gauge x 5/16" needle See Dose Instructions .ROUTE .MEDSUPPLY Qty: 100 RF: 3 torsemide 100 mg tablet 100 mg PO DAILY Qty: 90 RF: 1 nystatin 100,000 unit/gram powder 1 applic topical DAILY PRN (Reason: rash) Qty: 60 RF: 2 ranolazine [Ranexa] 500 mg tablet extended release 12 hr 500 mg PO BID Qty: 180 RF: 3 levothyroxine 150 mcg tablet 150 mcg PO DAILY Qty: 90 RF: 3 insulin aspart U-100 100 unit/mL (3 mL) insulin pen 37 units subcut TIDM RF: 0 febuxostat 40 mg tablet 40 mg PO DAILY PRN (Reason: GOUT FLARES) RF: 0 albuterol sulfate 90 mcg/actuation HFA aerosol inhaler 2 puff Inhalation Q4H PRN (Reason: Shortness Of Breath Or Wheezing) Qty: 18 RF: 3 albuterol sulfate 2.5 mg /3 mL (0.083 %) solution for nebulization 2.5 mg inhalation QID PRN (Reason: shortness of breath or wheezing) Qty: 75 RF: 0 aspirin 81 mg tablet,delayed release (DR/EC) 81 mg PO QAM Qty: 90 RF: 3 melatonin 3 mg tablet 3 mg PO HS Qty: 90 RF: 3 nitroglycerin [Nitrostat] 0.4 mg tablet, sublingual 0.4 mg Sublingual DIRECTED PRN (Reason: Chest Pain) Qty: 20 RF: 3 lisinopril 2.5 mg tablet 2.5 mg PO HS Qty: 90 RF: 3 atorvastatin 40 mg tablet 40 mg PO HS RF: 0 metoprolol succinate 100 mg tablet extended release 24 hr 100 mg PO DAILY RF: 0 spironolactone 25 mg tablet 25 mg PO DAILY RF: 0 diphenhydramine HCl 25 mg Tablet 25 mg PO HS RF: 0 pregabalin 25 mg capsule 25 mg PO TID RF: 0 Trelegy Ellipta 100-62.5-25 mcg blister with device 1 inh INHALATION DAILY RF: 0 Discontinued glipizide 10 mg tablet extended release 24hr 10 mg PO BID RF: 0 insulin glargine [Lantus Solostar U-100 Insulin] 100 unit/mL (3 mL) insulin pen 80 unit subcut QPM RF: 0 Discharge Orders: Discharge Order (Routine); Ordered 03/16/22 Ordered By: Mary Last Admission Data Admit Date/Time: 03/15/22 19:04 Attending Provider: Mau Smiley Admit Provider: Alfredo Longoria Primary Care Provider: Carlos Guardado Other Providers: Husam Witt ; Alfredo Longoria Other Interventions: Discharge Summary Assessment (RN) Last Done: 03/16/22 14:20 Supervising Physician Co-Signing Physician Notes Patient seen and examined, chart reviewed, case discussed with Yumi Last PA-C and I agree with the assessment and plan as above except as otherwise noted Isabel is a 56-year-old female who presented with acute on chronic congestive heart failure with preserved ejection fraction. Patient was treated with diuresis and clinically improved. Does continue to have lower extremity edema, which likely cannot be resolved due to her biventricular failure as noted by cardiology inpatient consultation. Tobacco cessation encouraged. Day of discharge patient was breathing comfortably, lungs were clear to auscultation. Regular rate and rhythm without murmurs. Pitting edema was present in lower extremities, similar to baseline per patient.Clinically improved at time of discharge, continue Lasix with outpatient follow-up to cardiology 03/18. Coding Level of Care Code D/C DAY MANAGEMENT >30 MINS Diagnoses Acute on chronic congestive heart failure I50.9 Hypothyroidism E03.9 Type 2 diabetes mellitus with complication E11.8 CAD (coronary artery disease) I25.10 COPD (chronic obstructive pulmonary disease) J44.9 Morbid obesity E66.01 Current smoker F17.200 Ischemic cardiomyopathy I25.5
[2022-03-16] MEDS ORDERED: DIGOXIN 0.25 MG TAB PO SCH (16:00)
[2022-03-17] MEDS ORDERED: DIGOXIN 0.125 MG TAB PO SCH (16:00)
== END 2022-03-16 14:32 | disposition home or self-care (01) | DRG 291 ==
LOC: ED 16:27 → SUATTDRO 19:04 → 2N 19:04